=== PATIENT | male | born 1990 | race Caucasian/White ===

== ENCOUNTER 2021-08-21 11:35 | Outpatient (REF) | payer OTHER, SELFPAY ==
[2021-08-21 13:39] LABS: Alanine Aminotransferase 18 U/L (0-40); Albumin Level 4.4 g/dL (3.5-5.0); Alkaline Phosphatase 91 U/L (39-117); Anion Gap 9 (12-20); Aspartate Amino Transferase 20 U/L (5-37); Bilirubin Total 1.3 mg/dL (0.0-1.0); Blood Urea Nitrogen 22 mg/dL (9-16); Calcium 9.7 mg/dL (8.4-10.2); Carbon Dioxide 29 mmol/L (22-29); Chloride 106 mmol/L (96-108); Cholesterol 189 mg/dL; Estimated Glomerular Filt Rate > 60; Glucose Fasting 91 mg/dL (60-99); HDL Cholesterol 35 mg/dL; LDL Cholesterol Calculated 130 mg/dl; Potassium 4.2 mmol/L (3.3-5.1); Sodium 140 mmol/L (135-145); Total Protein 7.2 g/dL (6.5-8.0); Triglycerides 122 mg/dL
[2021-08-21 13:59] LABS: TSH reflex Free T4 0.95 uIU/mL (0.32-4.0)
[2021-08-22 04:13] LABS: HBS Num1 50.23 mIU/mL (0-7.99); HBc Num1 0.06 S/CO (0.00-0.79); HBsAGNum1 0.27 S/CO (0.00-0.99); HIV AB/AG Nonreactive (Nonreactive); HIV Num 1 0.06 S/CO (0.00-0.99); Hepatitis B Core Antibody Nonreactive (Nonreactive); Hepatitis B Surface Antigen Negative (Negative); ~HepC Num1 0.09 S/CO (0.00-0.79); ~Hepatitis B Surface Antibody REACTIVE (Nonreactive); ~Hepatitis C Antibody Nonreactive (Nonreactive)
[2021-08-22 05:47] LABS: Syphilis Screen Nonreactive (Nonreactive)
== END 2021-08-21 11:36 | disposition home or self-care (01) ==
LOC: HO.WFDLDS 11:35
PROVIDERS: Visit Provider Family Medicine
DX: Z00.00 Encounter for general adult medical examination without abnormal findings (principal); Z11.4 Encounter for screening for human immunodeficiency virus [HIV]; Z11.3 Encounter for screening for infections with a predominantly sexual mode of transmission
CPT/HCPCS: 36415; 80053; 80061; 84443; 86704; 86706; 86780; 86803; 87340; 87389

== ENCOUNTER → 2021-09-05 10:46 | Outpatient (REF) | payer OTHER, SELFPAY ==
--- NOTE | 2021-09-05 10:51 | CA_ITS ---
Acquisition Time: 2021-09-05 11:11:03 Total Exercise Time: 00:15:01 Test Indications: HX CAD CP Medications: SEE CHART Protocol: DEE Max HR: 210 BPM 110% of Pred: 190 BPM Max BP: 152/060 mmHG Max Work Load: 17.2 METS Exercise stress test with exercise 15 min 1 sec of Dee protocol, achieving 88% MPHR, without anginal symptoms, without arrythmia, with normotensive response to exercise, without EKG changes meeting criteria for ischemia. Echo images obtained by tech at rest and immediately post peak exercise. Definity contrast used. Heart rate noted to correct quickly in recovery. Test reviewed with Dr Figueroa. Referred By: Enrico Miller Overread By: MAU LOGAN
== END ==
LOC: HO.CARD 10:46
PROVIDERS: PCP Family Medicine; Visit Provider Family Medicine
DX: R07.89 Other chest pain (principal)
CPT/HCPCS: 93350; Q9957

== ENCOUNTER 2021-12-18 10:20 | Outpatient (REF) | payer OTHER, SELFPAY ==
[2021-12-18 14:48] LABS: Alanine Aminotransferase 17 U/L (0-40); Albumin Level 4.5 g/dL (3.5-5.0); Alkaline Phosphatase 93 U/L (39-117); Anion Gap 15 (12-20); Aspartate Amino Transferase 18 U/L (5-37); Bilirubin Total 1.1 mg/dL (0.0-1.0); Blood Urea Nitrogen 21 mg/dL (9-16); Calcium 9.4 mg/dL (8.4-10.2); Carbon Dioxide 25 mmol/L (22-29); Chloride 105 mmol/L (96-108); Estimated Glomerular Filt Rate > 60; Glucose Random 87 mg/dL (60-115); Potassium 4.1 mmol/L (3.3-5.1); Sodium 141 mmol/L (135-145); Total Protein 7.2 g/dL (6.5-8.0)
== END 2021-12-18 10:21 | disposition home or self-care (01) ==
LOC: HO.WFDLDS 10:20
PROVIDERS: Visit Provider Family Medicine
DX: B35.1 Tinea unguium (principal)
CPT/HCPCS: 36415; 80053

== ENCOUNTER 2022-02-07 09:48 | Outpatient (REF) | payer OTHER, SELFPAY | END 2022-02-07 09:49 | disposition home or self-care (01) | LOC: HO.SH 09:48 | PROVIDERS: Visit Provider Family Medicine | DX: H90.11 Conductive hearing loss, unilateral, right ear, with unrestricted hearing on the contralateral side (principal) | CPT/HCPCS: 92557; 92567 ==

== ENCOUNTER 2023-04-14 02:01 | Emergency (ER) | payer OTHER, SELFPAY ==
[2023-04-14 02:04] VITALS: BP 150/99; PULSE 80; RESP 17; TEMP 36.8; O2SAT 98; BMI 25.1
--- NOTE | 2023-04-14 02:37 | PC.NURSE ---
Pt ambulated to room from triage, Pt changed over by security, belongings in closet.
--- NOTE | 2023-04-14 03:09 | PC.NURSE ---
Addendum entered by Paulette Velasco 04/14/23 06:55: 1:1 sitter for safety. Original Note: Pt laying in stretcher, A&Ox3, tearful at times. Reports having increase SI thoughts since Angel with no appetite. 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 Pt reports calling [phone] tonight no help with these feelings inside of me. My personal life is really empty . Pt reports feeling safe while here, Pt updated on plan. Med rec done, Pt reports not taking any home meds.
[2023-04-14 03:20] LABS: MANUAL DIFF FLAG NO
[2023-04-14 03:21] LABS: Basophils Percent Auto 0.7 % (0-2); Eosinophils Absolute Auto 0.1 X10*3/uL (0.0-0.4); Hemoglobin 16.3 g/dl (14.0-18.0); Imm Gran Abs Auto 0.02 X10*3/uL (0.00-0.03); Imm Gran Pct Auto 0.3 % (0.0-0.4); Lymphocytes Absolute Auto 2.1 X10*3/uL (1.2-4.9); Lymphocytes Percent Auto 34.2 % (20-40); Mean Corpuscular HGB Conc 36.2 g/dl (31.0-36.0); Mean Corpuscular Hemoglobin 30.6 pg (27.0-33.0); Mean Corpuscular Volume 84.4 fL (80.0-98.0); Mean Platelet Volume 8.6 fL (9.4-12.4); Monocytes Absolute Auto 0.5 X10*3/uL (0.1-1.2); Monocytes Percent Auto 8.4 % (2-11); Neutrophils Absolute Auto 3.4 x10*3/uL (2.0-8.3); Neutrophils Percent Auto 55.4 % (45-73); Platelet Count 220 X10*3/uL (160-400); Red Blood Count 5.33 X10*6/uL (4.60-5.80); Red Cell Distribution Width 11.8 % (11.0-16.0); White Blood Count 6.1 X10*3/uL (4.8-10.8)
[2023-04-14 03:44] LABS: Alanine Aminotransferase 16 U/L (0-40); Albumin Level 4.3 g/dL (3.5-5.0); Alkaline Phosphatase 81 U/L (39-117); Anion Gap 15 (12-20); Aspartate Amino Transferase 19 U/L (5-37); Bilirubin Direct 0.4 mg/dL (0.0-0.5); Bilirubin Total 1.3 mg/dL (0.0-1.0); Blood Urea Nitrogen 13 mg/dL (9-16); Calcium 9.6 mg/dL (8.4-10.2); Carbon Dioxide 23 mmol/L (22-29); Chloride 109 mmol/L (96-108); Creatinine Clr Calc Pharmacy 113.9; Estimated Glomerular Filt Rate > 60; Ethanol < 10 mg/dL; Glucose Random 90 mg/dL (60-115); Potassium 3.2 mmol/L (3.3-5.1); Sodium 144 mmol/L (135-145)
[2023-04-14 04:13] LABS: Amphetamine Screen Urine Not Detected (Not Detect); Barbiturates, Urine Not Detected (Not Detect); Benzodiazepines Screen Urine Not Detected (Not Detect); Cannabinoid Screen Urine Not Detected (Not Detect); Cocaine Screen Urine Not Detected (Not Detect); Fentanyl, urine Not Detected (Not Detect); Opiate Screen Urine Not Detected (Not Detect); Phencyclidine Screen Urine Not Detected (Not Detect)
[2023-04-14 06:00] VITALS: BP 123/73; PULSE 58; RESP 14; TEMP 36.8; O2SAT 98
--- NOTE | 2023-04-14 07:25 | ED.GENADULT ---
HPI - General Adult General Chief complaint: Psychiatric Symptoms Stated complaint: Self inflicted lac Time Seen by Provider: 04/14/23 07:15 History of Present Illness HPI narrative: the patient is a 33-year-old male who drove himself to the emergency room here this morning T because he was feeling depressed. He says that something happened 1 week ago on Angel that made him feel more depressed over the last several days. He says he has been eating significantly less ever since then and this morning he used a kitchen knife to scratch his left forearm in a suicidal gesture. He regretted doing that and then drove himself to the hospital here. He says that he has had episodes of significant depression before in his life but he has never before presented to Emergency Room because of depression. He says he tried to get a Therapist about a year 2 ago but he had difficulty doing so and never connected with the therapist. The patient has no medical complaints. No fever, sweats, chills. No headache, chest pain, abdominal pain, nausea, vomiting. No ingestions. Related Data Home Medications Medication Instructions Recorded Confirmed No Known Home Meds 04/14/23 04/14/23 Allergies Allergy/AdvReac Type Severity Reaction Status Date / Time No Known Allergies Allergy Verified 04/14/23 03:16 [No Known Allergies*] Review of Systems Review of Systems: Yes all other systems are reviewed and are negative [facility] Social History Social History Housing: House Alcohol intake: never Patient Tobacco Use Status: Never used Tobacco Smoked in Last 30 Days: No e-Cigarette/Vaping Use: Never Used Second Hand Smoke Exposure: No Use of substances other than those prescribed or required for medical reasons: No Advance Directives: No Advance Directives Information Provided: Yes Healthcare Proxy: No Guardian: No service: No Current occupational status: employed Current occupational exposures/hazards: No Cognitive needs: No Hearing needs: No Vision needs: No Physical Exam ED Vital Signs: Vital Signs - 24 hr 04/14/23 02:04 04/14/23 06:00 04/14/23 10:50 Temperature 98.3 F 98.3 F Pulse Rate 80 58 76 Respiratory Rate 17 14 19 Blood Pressure 150/99 H 123/73 121/76 Pulse Oximetry 98 98 97 Oxygen Delivery Method Room Air Room Air Room Air BMI result Body Mass Index 25.1 Const Other: The patient was sleeping when I 1st encountered him but woke easily to a normal mental status. He does not appear ill. He was pleasant cooperative. HENMT Other: Mucous membranes moist, face symmetrical Eyes Other: Pupils are round equal, conjunctivae clear Neck Neck: Yes no JVD Resp Effort & Inspection: normal respiratory effort Auscultation: clear to auscultation bilaterally Cardio Rate: regular rate Rhythm: regular rhythm Heart sounds: S1 normal heart sound present and S2 normal heart sound present GI Other: Soft, nontender Skin General skin exam: no rashes or lesions noted Neuro Other: Awake, alert, appropriate, grossly neurologically intact. Extrem Other: No peripheral edema. Medical Decision Making Medical Decision Making [facility] Narrative: The patient is a 33-year-old male who presents with symptoms of depression and thoughts of self-harm who comes to the emergency room looking for help for these problems. He seems medically stable and clear for evaluation by behavioral health. The patient was seen by the behavioral health crisis team. The patient was judged to be at low risk for self-harm and was not felt to require hospitalization. The patient seems to be comfortable being discharged. His mother is here. She seems supportive. Patient will be discharged to follow-up with [facility] in [place]. He was given appropriate contact information. Lab Data 04/14/23 03:16 04/14/23 03:16 Labs: Lab Results 04/14/23 04/14/23 Range/Units 03:16 03:55 WBC 6.1 (4.8-10.8) X10*3/uL RBC 5.33 (4.60-5.80) X10*6/uL Hgb 16.3 (14.0-18.0) g/dl Hct 45.0 (42.0-52.0) % MCV 84.4 (80.0-98.0) fL MCH 30.6 (27.0-33.0) pg MCHC 36.2 H (31.0-36.0) g/dl RDW 11.8 (11.0-16.0) % Plt Count 220 (160-400) X10*3/uL MPV 8.6 L (9.4-12.4) fL Immature Gran % (Auto) 0.3 (0.0-0.4) % Neut % (Auto) 55.4 (45-73) % Lymph % (Auto) 34.2 (20-40) % Menard % (Auto) 8.4 (2-11) % Eos % (Auto) 1.0 (0-4) % Baso % (Auto) 0.7 (0-2) % Lymph # (Auto) 2.1 (1.2-4.9) X10*3/uL Menard # (Auto) 0.5 (0.1-1.2) X10*3/uL Eos # (Auto) 0.1 (0.0-0.4) X10*3/uL Baso # (Auto) 0.0 (0.0-0.2) X10*3/uL Abs Immat Gran (auto) 0.02 (0.00-0.03) X10*3/uL Absolute Neuts (auto) 3.4 (2.0-8.3) x10*3/uL Absolute Nucleated RBC 0.000 (0.0-0.012) X10*3/uL Nucleated RBC % (auto) 0.0 (0.0-0.2) /100WBC Sodium 144 (135-145) mmol/L Potassium 3.2 L D (3.3-5.1) mmol/L Chloride 109 H (96-108) mmol/L Carbon Dioxide 23 (22-29) mmol/L Anion Gap 15 (12-20) BUN 13 (9-16) mg/dL Creatinine 0.87 (0.5-1.4) mg/dL Estim Creat Clear Calc 113.9 Estimated GFR > 60 Random Glucose 90 (60-115) mg/dL Calcium 9.6 (8.4-10.2) mg/dL Total Bilirubin 1.3 H (0.0-1.0) mg/dL Direct Bilirubin 0.4 (0.0-0.5) mg/dL AST 19 (5-37) U/L ALT 16 (0-40) U/L Alkaline Phosphatase 81 (39-117) U/L Total Protein 7.0 (6.5-8.0) g/dL Albumin 4.3 (3.5-5.0) g/dL Urine Opiates Screen Not Detected (Not Detect) Urine Fentanyl Screen Not Detected (Not Detect) Ur Barbiturates Screen Not Detected (Not Detect) Ur Phencyclidine Scrn Not Detected (Not Detect) Ur Amphetamines Screen Not Detected (Not Detect) U Benzodiazepines Scrn Not Detected (Not Detect) Urine Cocaine Screen Not Detected (Not Detect) U Marijuana (THC) Screen Not Detected (Not Detect) Ethyl Alcohol < 10 mg/dL Discharge Plan Discharge Clinical Impression: Depression Patient Disposition: Home, Self-Care Additional Instructions: These plan on following up with [facility] ([facility]) based in [facility]. They have an intake office at their location at [facility]. Their general numbers for [phone]. This is a 24 hour number the you can call at any time. You may also call this number if you are feeling bad and wished to speak to somebody confidentially. If you are feeling significantly worse please call the above number or return to the emergency department. Prescriptions: No Action No Known Home Meds Referrals: [facility] [Outside] (depression) Enrico Miller MD [Physician] - Interventions: [place]-Suicide Risk Severity Scale Last Done: 04/14/23 02:40 ED Discharge Assessment Last Done: 04/14/23 12:33 Discharge Date/Time: 04/14/23 12:44
[2023-04-14 10:50] VITALS: BP 121/76; PULSE 76; RESP 19; O2SAT 97
== END 2023-04-14 12:44 | disposition home or self-care (01) ==
PROVIDERS: Emergency Provider Emergency Medicine
DX: F32.A Depression, unspecified (principal); R45.851 Suicidal ideations; E78.00 Pure hypercholesterolemia, unspecified
CPT/HCPCS: 36415; 80053; 80307; 82248; 85025; 99284; 99285; S9485

== ENCOUNTER 2023-06-05 15:42 | Outpatient (AMB) | payer OTHER, SELFPAY ==
[2023-06-05 16:09] VITALS: BP 134/78; PULSE 84; RESP 16; O2SAT 96; BMI 23.6
--- NOTE | 2023-06-05 16:09 | MHC.PC.OV ---
Vital Signs 06/05/23 16:09 Height 5 ft 7 in Weight 151 lb BMI 23.6 BP 134/78 Blood Pressure Location Lt brachial Position Sitting Respiration 16 Pulse 84 Pulse Source Pulse Oximeter Pulse Oximetry (%) 96 Oxygen Delivery Method Room Air Intake Visit Reasons: Annual PE Intake Note: Patient is here for his physical today. Allergies No Known Allergies [No Known Allergies*] Allergy (Verified 06/05/23 16:13) Tobacco use date assessed: 06/05/23 HPI Annual PE HPI Details 33 y/o male presents today to discuss depression/anxiety. PHQ-9 score today 26, RAYMON-7 13. Had just been to Crisis recently. Depression/anxiety started Angel. Had felt unstable around New Years and had went to the emergency department - he states not much was done for him and had went home after 12 hours. Pt states mood had worsened and notes episodes of excessive drinking of up to 15 shots of whiskey. Pt also reports an episode of swimming in the river in May. He does not have an official therapist but has been seeing a crisis counselor. Pt reports poor sleep. [facility] Social History Housing: House Alcohol intake: never Patient Tobacco Use Status: Never used Tobacco e-Cigarette/Vaping Use: Never Used Second Hand Smoke Exposure: No service: No Current occupational status: employed Current occupational exposures/hazards: No Cognitive needs: No Hearing needs: No Vision needs: No Questionnaire PHQ-9 Over the last 2 weeks, how often have you been bothered by any of the following problems? 1. Little interest or pleasure in doing things: nearly every day 2. Feeling down, depressed, or hopeless: nearly every day 3. Trouble falling or staying asleep, or sleeping too much: nearly every day 4. Feeling tired or having little energy: nearly every day 5. Poor appetite or overeating: nearly every day 6. Feeling bad about yourself - or that you are a failure or have let yourself or your family down: nearly every day 7. Trouble concentrating on things, such as reading the newspaper or watching television: nearly every day 8. Moving or speaking so slowly that other people could have noticed. Or the opposite - being so fidgety or restless that you have been moving around a lot more than usual: nearly every day 9. Thoughts that you would be better off or of hurting yourself in some way: more than half the days Total score: 26 Depression Screening Interpretation: Positive Depression Screening Done: Yes 66254 - PHQ-9 Billing: Yes Source: Developed by Drs. Blaise Lee, Capo Montaño and colleagues, with an educational jose from [employer]. RAYMON-7 AMB Questionnaire RAYMON-7 Date RAYMON - 7 assessed: 06/05/23 Feeling nervous, anxious, or on edge: 3 = Nearly every day Not being able to stop or control worryin = Nearly every day Worrying too much about different things: 3 = Nearly every day Trouble relaxin = Nearly every day Being so restless that it is hard to sit still: 0 = Not at all Becoming easily annoyed or irritable: 0 = Not at all Feeling afraid as if something awful might happen: 1 = Several days Total RAYMON-7 score (0-4 normal; 5-9 mild; 10-14 moderate; 15-21 severe): 13 Source: Developed by Drs. Blaise Lee, Tyra Cotto, Capo Kinsey and colleagues, with an educational jose from [employer]. RAYMON-7 Assessment Billing RAYMON-7 Assessment Tool: RAYMON-7 Assessment 46947 Review of Systems Const Denies chills, Denies fatigue, Denies fever(s), Denies headache(s) and Denies weakness ENT Denies dizziness and Denies headache(s) Card Denies dyspnea Resp Denies cough, Denies dyspnea, Denies wheezing and Denies other (shortness of breath) Musc Denies numbness and Denies tingling Neuro Denies dizziness, Denies headache(s), Denies numbness, Denies tingling and Denies weakness Psych Reports anxiety and Reports depression Endo Denies fatigue Aller/Immun Denies wheezing Physical exam (Primary Care) Vital Signs: Last Vital Signs Pulse 84 06/05/23 16:09 Resp 16 06/05/23 16:09 BP 134/78 06/05/23 16:09 Pulse Ox 96 06/05/23 16:09 Oxygen Delivery Method Room Air 06/05/23 16:09 BMI result Body Mass Index 23.6 Tobacco/Smoking Status: Tobacco use Status Tobacco use date assessed 06/05/23 06/05/23 16:23 Patient Tobacco Use Status Never used Tobacco 06/05/23 16:23 e-Cigarette/Vaping Use Never Used 06/05/23 16:23 PHQ-9: PHQ-9 Score PHQ-9: Total score 26 06/05/23 16:23 Depression Screening Interpretation: Positive Const General: well developed; No acute distress Nutritional Appearance: well nourished Orientation/consciousness: patient oriented x3 HENMT Head: Yes normocephalic and Yes atraumatic Eyes General: appearance normal, both eyes and all related structures Pupils: Equal, round and reactive pupils present EOM: EOMs intact bilaterally Resp Effort & Inspection: normal respiratory effort Auscultation: clear to auscultation bilaterally Cardio Rate: regular rate Rhythm: regular rhythm Heart sounds: S1 normal heart sound present, S2 normal heart sound present, no gallops, no murmurs and no rubs Neuro General: patient oriented x3 and gait normal Cranial nerves: Yes Equal, round and reactive pupils present Psych Affect: Anxious affect present Assessment and Plan Assessment & Plan (1) Depression with anxiety: Code(s): F41.8 - Other specified anxiety disorders Plan: Severe?depression?and?anxiety. Has?been?to?crisis?and?I?encouraged?him?that?if?he?is?having?further?problems?or?thinking?about?hurting?himself?in?any?way,?he?should?go?back?to?crisis. He?can?also?call?here. He?says?he?has?a?relative?he?will?ask?if?they?would?be?willing?to?be?another?person?he?can?call?if?he?is?thinking?about?hurting?himself. Contracts?for?safety Will?ask?the?nurse?navigator?to?connect?him?with?a?therapist?as?soon?as?possible We?discussed?trying?a?small?dose?of?Abilify?which?may?help?with?sleep,?anxiety?and?depression.??He?may?stop?this?if?he?does?not?like?how?it?makes?him?feel.??He?can?also?discuss?with?his?therapist?when?he?gets?one. Orders: Orders Comprehensive [place]. Panel Fast Today Z00.00 - Encounter for general adult medical examination without abnormal findings Lipid Panel Today Z00.00 - Encounter for general adult medical examination without abnormal findings Microalbumin, Random (w Creat) Today I10 - Essential (primary) hypertension TSH reflex Free T4 Today Z00.00 - Encounter for general adult medical examination without abnormal findings UA and rflx microscopic Today Z00.00 - Encounter for general adult medical examination without abnormal findings CT NG by PCR Today Z11.3 - Encounter for screening for infections with a predominantly sexual mode of transmission HIV Ab/Ag Today Z11.3 - Encounter for screening for infections with a predominantly sexual mode of transmission Vitamin D 25-OH Total Today E55.9 - Vitamin D deficiency, unspecified Vitamin B12 and Folate Today E53.8 - Deficiency of other specified B group vitamins Complete Blood Count Auto Diff Today Z00.00 - Encounter for general adult medical examination without abnormal findings Hepatitis B,C Profile Today Z11.3 - Encounter for screening for infections with a predominantly sexual mode of transmission Syphilis Screen Today Z11.3 - Encounter for screening for infections with a predominantly sexual mode of transmission Referrals Nurse Navigator Referral F41.8 - Other specified anxiety disorders Medications: New aripiprazole (Abilify) 2 mg PO BEDTIME 5 tabs 0RF 5 days Coding Level of Care Code Est Pt Level 3 (66760) Diagnoses Depression with anxiety F41.8 Additional Codes RAYMON-7 Assessment Billing - RAYMON-7 Assessment Tool: RAYMON-7 Assessment [id number] ([id number])
== END 2023-06-05 17:00 ==
PROVIDERS: PCP Family Medicine; Visit Provider Family Medicine
DX: F41.8 Other specified anxiety disorders (principal)
CPT/HCPCS: 96127; 99213

== ENCOUNTER 2023-06-07 03:33 | Emergency (ER) | payer OTHER, SELFPAY ==
[2023-06-07 03:37] VITALS: BP 124/87; PULSE 74; RESP 16; TEMP 36.6; O2SAT 97; BMI 22.6
[2023-06-07 04:35] LABS: Hematocrit 46.8 % (42.0-52.0); Hemoglobin 16.7 g/dl (14.0-18.0); Mean Corpuscular HGB Conc 35.7 g/dl (31.0-36.0); Mean Corpuscular Hemoglobin 30.5 pg (27.0-33.0); Mean Corpuscular Volume 85.6 fL (80.0-98.0); Mean Platelet Volume 8.8 fL (9.4-12.4); Platelet Count 239 X10*3/uL (160-400); Red Blood Count 5.47 X10*6/uL (4.60-5.80); Red Cell Distribution Width 11.9 % (11.0-16.0); White Blood Count 6.8 X10*3/uL (4.8-10.8)
[2023-06-07 04:36] LABS: Appearance Urine Clear; Color Urine Yellow; Glucose Urine UA Negative (Negative); Leukocyte Esterase Urine Negative (Negative); Nitrite Urine Negative (Negative); PH 5.5 (5.0-9.0); Specific Gravity - Urine >= 1.030 (1.005-1.025); Urine Blood Negative (Negative); Urine Ketones Trace mg/dL (Negative); Urine Protein Negative (Neg-Trace)
--- NOTE | 2023-06-07 04:37 | PC.NURSE ---
PT had $747 in wallet. Father had just left ED so PT called dad and requested him to return to obtain wallet and barajas. This RN counted PT's barajas in front of dad and chief guard, Ruel and gave barajas and wallet to dad.
[2023-06-07 04:46] LABS: Amphetamine Screen Urine Not Detected (Not Detect); Barbiturates, Urine Not Detected (Not Detect); Benzodiazepines Screen Urine Not Detected (Not Detect); Cannabinoid Screen Urine Not Detected (Not Detect); Cocaine Screen Urine Not Detected (Not Detect); Fentanyl, urine Not Detected (Not Detect); Opiate Screen Urine Not Detected (Not Detect); Phencyclidine Screen Urine Not Detected (Not Detect)
[2023-06-07 04:52] LABS: COVID-19 Test Negative (Negative); IDNOW Serial# 152EDE1D
[2023-06-07 04:56] LABS: Alanine Aminotransferase 19 U/L (0-40); Albumin Level 4.3 g/dL (3.5-5.0); Alkaline Phosphatase 78 U/L (39-117); Anion Gap 13 (12-20); Aspartate Amino Transferase 15 U/L (5-37); Bilirubin Total 0.4 mg/dL (0.0-1.0); Blood Urea Nitrogen 19 mg/dL (9-16); Calcium 9.5 mg/dL (8.4-10.2); Carbon Dioxide 26 mmol/L (22-29); Chloride 106 mmol/L (96-108); Creatinine Clr Calc Pharmacy 121.9; Estimated Glomerular Filt Rate > 60; Ethanol < 10 mg/dL; Glucose Random 97 mg/dL (60-115); Potassium 3.4 mmol/L (3.3-5.1); Sodium 142 mmol/L (135-145); Total Protein 6.9 g/dL (6.5-8.0)
[2023-06-07 05:20] VITALS: RESP 18
[2023-06-07 06:00] VITALS: RESP 16
--- NOTE | 2023-06-07 07:58 | ED.GENADULT ---
HPI - General Adult General Chief complaint: Psychiatric Symptoms Stated complaint: ?Crisis Time Seen by Provider: 06/07/23 06:43 Source: patient Mode of arrival: ambulatory Limitations: no limitations History of Present Illness HPI narrative: 33-year-old male history of depression, anxiety presenting to the emergency department for concerns of suicidal ideation with self-inflicted wounds to left wrist and left forearm. According to patient he bought a knife and started cutting himself unclear why. Also reports he has been drinking more than usual since April. He was recently prescribed Abilify a few days ago which he does not feel has been helping he states he started taking it 2 days ago. Denies hallucinations, drug use. Denies medical complaints at this time denies fevers, chills, chest pain, shortness of breath, nausea, vomiting, abdominal pain, headache, vision changes, dizziness and weakness, fevers and chills . UTD on tetanus Related Data Previous Rx's Medication Instructions Recorded aripiprazole 2 mg tablet (Abilify) 2 mg PO BEDTIME 5 days #5 tabs 06/05/23 Allergies Allergy/AdvReac Type Severity Reaction Status Date / Time No Known Allergies Allergy Verified 06/05/23 16:13 [No Known Allergies*] Review of Systems Review of Systems: Yes all other systems are reviewed and are negative PMFSH Past Medical History Attestation statement: The following information was validated with the patient. Source: old records reviewed and nursing notes reviewed Social History Social History Housing: House Alcohol intake: never Patient Tobacco Use Status: Never used Tobacco Smoked in Last 30 Days: No e-Cigarette/Vaping Use: Never Used Second Hand Smoke Exposure: No Use of substances other than those prescribed or required for medical reasons: No Advance Directives: No Advance Directives Information Provided: Yes service: No Current occupational status: employed Current occupational exposures/hazards: No Cognitive needs: No Hearing needs: No Vision needs: No Physical Exam ED Vital Signs: Vital Signs - 24 hr 06/07/23 03:37 06/07/23 05:20 06/07/23 06:00 Temperature 97.9 F Pulse Rate 74 Respiratory Rate 16 18 16 Blood Pressure 124/87 Pulse Oximetry 97 Oxygen Delivery Method Room Air BMI result Body Mass Index 22.6 vss Appearance: Alert.? Oriented X3.? No acute distress.? Head: Normocephalic, atraumatic, no step-offs or deformities Eyes: Pupils equal, round and reactive to light.? ENT: Pharynx normal.? Neck: Normal inspection.? Neck supple.? CVS: Normal heart rate and rhythm.? Pulses normal.? Respiratory: No respiratory distress.? Breath sounds normal.? Abdomen: Soft and nontender.? Skin: Skin warm and dry.? Normal skin color.? Normal skin turgor.? self induced linear superficial lacerations to left wrist and forearm and r thigh . Not bleeding. Extremities: No lower extremity edema.? No calf ttp. 5/5 strength to bilateral upper and lower extremities Neuro: Oriented X 3.? No motor deficit.? No sensory deficit. CN 2-12 intact Course Reevaluation(s) Reevaluation #1: CBC no acute findings. Chemistry unremarkable. UA without infection. Urine toxicology negative. Ethanol negative. COVID negative. At this time patient to be placed into observation pending evaluation by care team. Time: 08:38 Reevaluation #2: Patient to be DC home w/ parents who will not allow him to be at home will be set up with resources. Safety plan [facility]be done by [facility] care team. And partial hospitalization referral sent. Agree with plan. Patient not suicidal or homicidal at this time. Feeling well. Initially he just told me he fell only. Educated patient on diagnosis and treatment plan, answered all question, patient verbalizes understanding. At this time patient will be discharged home, advised to return with new or worsening symptoms. Educated on worrisome signs and symptoms and when to return. At this time I feel comfortable discharge home. Time: 14:22 Medications Administered Discontinued Medications Generic Name Dose Route Start Last Admin Trade Name Freq PRN Reason Stop Dose Admin Diphtheria/Tetanus/Acell Pertussis 0.5 ml 06/07/23 08:00 06/07/23 08:18 Diphth,Pertus(Acell),Tet Adult 0.5 Ml Syringe IM 06/07/23 08:01 Not Given .ONCE ONE Medical Decision Making Medical Decision Making MDM Narrative: 33-year-old male presents initially with father who is concerned that patient has been trying to self harm. He is suicidal with no particular plan. Patient recently started on Abilify Physical exam self induced linear superficial lacerations to left wrist and forearm and r thigh . Not bleeding. History and physical exam concerning for depression versus bipolar with suicidal ideation. Unlikely metabolic derangements. Plan medical clearance evaluation by behavioral health team. Will give Boostrix shot Differential Diagnosis Differential Diagnoses: The differential diagnosis associated with the presentation includes History and physical exam concerning for depression versus bipolar with suicidal ideation. Unlikely metabolic derangements. Admission/Observation Consideration of admission/observation: Escalation of care including admission/observation considered Possible psych Consult Healthcare Provider Management of the patient was discussed with: Behavioral Health Provider Lab Data MDM Lab Attestation statement: I reviewed the patient's lab results. 06/07/23 04:27 06/07/23 04:27 Labs: Lab Results 06/07/23 06/07/23 Range/Units 04:27 04:28 WBC 6.8 (4.8-10.8) X10*3/uL RBC 5.47 (4.60-5.80) X10*6/uL Hgb 16.7 (14.0-18.0) g/dl Hct 46.8 (42.0-52.0) % MCV 85.6 (80.0-98.0) fL MCH 30.5 (27.0-33.0) pg MCHC 35.7 (31.0-36.0) g/dl RDW 11.9 (11.0-16.0) % Plt Count 239 (160-400) X10*3/uL MPV 8.8 L (9.4-12.4) fL Absolute Nucleated RBC 0.000 (0.0-0.012) X10*3/uL Nucleated RBC % (auto) 0.0 (0.0-0.2) /100WBC Sodium 142 (135-145) mmol/L Potassium 3.4 (3.3-5.1) mmol/L Chloride 106 (96-108) mmol/L Carbon Dioxide 26 (22-29) mmol/L Anion Gap 13 (12-20) BUN 19 H (9-16) mg/dL Creatinine 0.83 (0.5-1.4) mg/dL Estim Creat Clear Calc 121.9 Estimated GFR > 60 Random Glucose 97 (60-115) mg/dL Calcium 9.5 (8.4-10.2) mg/dL Total Bilirubin 0.4 (0.0-1.0) mg/dL AST 15 (5-37) U/L ALT 19 (0-40) U/L Alkaline Phosphatase 78 (39-117) U/L Total Protein 6.9 (6.5-8.0) g/dL Albumin 4.3 (3.5-5.0) g/dL Urine Color Yellow Urine Appearance Clear Urine pH 5.5 (5.0-9.0) Ur Specific [place] >= 1.030 H (1.005-1.025) Urine Protein Negative (Neg-Trace) mg/dL Urine Glucose (UA) Negative (Negative) mg/dL Urine Ketones Trace (Negative) mg/dL Urine Blood Negative (Negative) Urine Nitrite Negative (Negative) Ur Leukocyte Esterase Negative (Negative) Urine Opiates Screen Not Detected (Not Detect) Urine Fentanyl Screen Not Detected (Not Detect) Ur Barbiturates Screen Not Detected (Not Detect) Ur Phencyclidine Scrn Not Detected (Not Detect) Ur Amphetamines Screen Not Detected (Not Detect) U Benzodiazepines Scrn Not Detected (Not Detect) Urine Cocaine Screen Not Detected (Not Detect) U Marijuana (THC) Screen Not Detected (Not Detect) Ethyl Alcohol < 10 mg/dL COVID-19 (FELICIANO) Negative (Negative) COVID-19 Clin Com See Note External Record Review External record reviewed: Inpatient record, Office record, Outpatient record, Prior outpatient labs, Prior outpatient radiology and Primary care record Chronic Conditions Patient?s care impacted by: Other (depression ) Critical Care Time Critical Care Time Critical Care Time: No Discharge Plan Discharge Clinical Impression: Depression with anxiety, Self-inflicted laceration of wrist Patient Disposition: Home, Self-Care Instructions: Laceration (ED), Panic Disorder (ED), Anxiety (ED) Additional Instructions: Take your medications as prescribed. If you were prescribed antibiotics today, it is important that you take your medication to their entirety, do not skip any doses, do not finish them early. Follow-up with your primary care provider this week. Return to the emergency department with new or worsening symptoms. Such as fevers, chills, chest pain, shortness of breath, nausea, vomiting, dizziness, headache, vision changes, lethargy, suicidal or homicidal ideation In case of emergency call 911 Prescriptions: No Action aripiprazole [Abilify] 2 mg tablet 2 mg PO BEDTIME 5 Days Qty: 5 0RF Referrals: Enrico Miller MD [Primary Care Provider] - 2 days Interventions: [place]-Suicide Risk Severity Scale Last Done: 06/07/23 12:50
--- NOTE | 2023-06-07 09:10 | PC.NURSE ---
Assumed care of patient at 0700, patient appears to be sleeping at this time, no apparent distress. continue plan of care for Sec 12, inpt admission
[2023-06-07 14:42] VITALS: PULSE 88; RESP 14; O2SAT 97
--- NOTE | 2023-06-07 14:57 | MHC.CARE ---
Patient evaluated by the CARE Team, does not require an inpatient admission. Safety planning completed, written assessment to follow. ED provider, RASHIDA Luna updated and in agreement with plan.
--- NOTE | 2023-06-07 18:42 | MHC.CARE ---
RAD Team completed and faxed PHP referral for this pt, will follow up
--- NOTE | 2023-06-09 10:14 | MHC.CARE ---
Rad Team spoke with Kait Reyes at [facility] [phone] and confirmed that the referral has been received. Kait stated that she plans to reach out to [place] today.
== END 2023-06-07 14:43 | disposition home or self-care (01) ==
PROVIDERS: Emergency Medicine Emergency Medical Services; Emergency Provider Emergency Medicine; PCP Family Medicine
DX: F41.8 Other specified anxiety disorders (principal); S61.512A Laceration without foreign body of left wrist, initial encounter; X78.9XXA Intentional self-harm by unspecified sharp object, initial encounter; Y93.9 Activity, unspecified; Y92.9 Unspecified place or not applicable; Y99.9 Unspecified external cause status; R45.851 Suicidal ideations; Z11.52 Encounter for screening for COVID-19; Z79.899 Other long term (current) drug therapy
CPT/HCPCS: 36415; 80053; 80307; 81003; 85027; 87635; 90471; 99285; S9485

== ENCOUNTER 2023-07-15 10:33 | Outpatient (AMB) | payer OTHER, SELFPAY ==
--- NOTE | 2023-07-15 10:38 | MHC.PC.OV ---
Vital Signs 07/15/23 10:43 Height 5 ft 8 in Weight 151 lb BMI 23.0 BP 112/60 Blood Pressure Location Lt brachial Position Sitting Pulse 53 Pulse Source Pulse Oximeter Pulse Oximetry (%) 97 Oxygen Delivery Method Room Air Intake Visit Reasons: 1 mth follow up Intake Note: Patient is here for 1 month follow up on depression/anxiety. Allergies No Known Allergies [No Known Allergies*] Allergy (Verified 07/15/23 10:39) Medication List - Last Reconciled 07/15/23 by Enrico Miller MD aripiprazole (Abilify) 2 mg PO BEDTIME 5 days Tobacco use date assessed: 07/15/23 HPI 1 mth follow up HPI Details 33 y/o male presents to f/u anxiety/depression. Had referred for therapist and given him a short script for Abilify. PHQ-9 was 26 on 06/05/23 and RAYMON-7 13. PHQ-9 13, RAYMON-7 2 today. He states he has a therapist now. He is not taking Abilify. [facility] Social History Housing: House Alcohol intake: never Patient Tobacco Use Status: Never used Tobacco e-Cigarette/Vaping Use: Never Used Second Hand Smoke Exposure: No service: No Current occupational status: employed Current occupational exposures/hazards: No Cognitive needs: No Hearing needs: No Vision needs: No Questionnaire PHQ-9 Over the last 2 weeks, how often have you been bothered by any of the following problems? 1. Little interest or pleasure in doing things: more than half the days 2. Feeling down, depressed, or hopeless: several days 3. Trouble falling or staying asleep, or sleeping too much: nearly every day 4. Feeling tired or having little energy: several days 5. Poor appetite or overeating: nearly every day 6. Feeling bad about yourself - or that you are a failure or have let yourself or your family down: several days 7. Trouble concentrating on things, such as reading the newspaper or watching television: several days 8. Moving or speaking so slowly that other people could have noticed. Or the opposite - being so fidgety or restless that you have been moving around a lot more than usual: not at all 9. Thoughts that you would be better off or of hurting yourself in some way: several days Total score: 13 Depression Screening Interpretation: Positive Depression Screening Done: Yes 35135 - PHQ-9 Billing: Yes Source: Developed by Drs. Blaise Lee, Tyra Cotto, Capo Kinsey and colleagues, with an educational jose from [employer]. RAYMON-7 AMB Questionnaire RAYMON-7 Date RAYMON - 7 assessed: 07/15/23 Feeling nervous, anxious, or on edge: 0 = Not at all Not being able to stop or control worryin = Several days Worrying too much about different things: 1 = Several days Trouble relaxin = Not at all Being so restless that it is hard to sit still: 0 = Not at all Becoming easily annoyed or irritable: 0 = Not at all Feeling afraid as if something awful might happen: 0 = Not at all Total RAYMON-7 score (0-4 normal; 5-9 mild; 10-14 moderate; 15-21 severe): 2 Source: Developed by Drs. Blaise Lee, Tyra Cotto, Capo Kinsey and colleagues, with an educational jose from [employer]. RAYMON-7 Assessment Billing RAYMON-7 Assessment Tool: RAYMON-7 Assessment 22553 Review of Systems Const Denies chills, Denies fatigue, Denies fever(s), Denies headache(s) and Denies weakness ENT Denies dizziness and Denies headache(s) Card Denies dyspnea Resp Denies cough, Denies dyspnea, Denies wheezing and Denies other (shortness of breath) Musc Denies numbness and Denies tingling Neuro Denies dizziness, Denies headache(s), Denies numbness, Denies tingling and Denies weakness Psych Reports anxiety and Reports depression Endo Denies fatigue Aller/Immun Denies wheezing Physical exam (Primary Care) Vital Signs: Last Vital Signs Pulse 53 07/15/23 10:43 BP 112/60 07/15/23 10:43 Pulse Ox 97 07/15/23 10:43 Oxygen Delivery Method Room Air 07/15/23 10:43 BMI result Body Mass Index 23.0 Tobacco/Smoking Status: Tobacco use Status Tobacco use date assessed 07/15/23 07/15/23 10:45 Patient Tobacco Use Status Never used Tobacco 07/15/23 10:45 e-Cigarette/Vaping Use Never Used 07/15/23 10:45 PHQ-9: PHQ-9 Score PHQ-9: Total score 13 07/15/23 11:18 Depression Screening Interpretation: Positive Const General: well developed; No acute distress Nutritional Appearance: well nourished Orientation/consciousness: patient oriented x3 HENMT Head: Yes normocephalic and Yes atraumatic Eyes General: appearance normal, both eyes and all related structures Pupils: Equal, round and reactive pupils present EOM: EOMs intact bilaterally Resp Effort & Inspection: normal respiratory effort Neuro General: patient oriented x3 and gait normal Cranial nerves: Yes Equal, round and reactive pupils present Psych Affect: normal affect Assessment and Plan Assessment & Plan (1) Depression with anxiety: Code(s): F41.8 - Other specified anxiety disorders Plan: Patient?is?PHQ-9?has?improved?from?26?down?to?13?and?raymon?7?has?improved?from?13?down?to?2. Still?scoring?significantly?for?depression?but?much?improved.??He?contracts?for?safety. He?is?no?longer?taking?Abilify?which?he?said?made?it?difficult?for?him?to?focus?the?next?day?though?it?did?help?him?with?sleep. He?has?a?new?therapist?and?is?optimistic?about?this.??I?encouraged?him?to?continue?this Also?attending?pain?class?and?dance?class.??Encouraged?these?as?well Will?follow-up?again?in?2?months Medications: Discontinued aripiprazole (Abilify) Discontinued Reason: Patient no longer taking 2 mg PO BEDTIME 5 tabs 0RF 5 days Coding Level of Care Code Est Pt Level 3 (07394) Diagnoses Depression with anxiety F41.8 Additional Codes RAYMON-7 Assessment Billing - RAYMON-7 Assessment Tool: RAYMON-7 Assessment 60144 ([id number])
[2023-07-15 10:43] VITALS: BP 112/60; PULSE 53; O2SAT 97; BMI 23.0
== END 2023-07-15 11:30 | disposition home or self-care (01) ==
PROVIDERS: PCP Family Medicine; Visit Provider Family Medicine
DX: F41.8 Other specified anxiety disorders (principal)
CPT/HCPCS: 99213

== ENCOUNTER 2023-09-16 15:49 | Outpatient (AMB) | payer OTHER, SELFPAY ==
[2023-09-16 15:59] VITALS: BP 118/70; PULSE 77; O2SAT 97; BMI 24.1
--- NOTE | 2023-09-16 15:59 | MHC.PC.OV ---
Vital Signs 09/16/23 15:59 Height 5 ft 8 in Weight 158 lb 6 oz BMI 24.1 BP 118/70 Blood Pressure Location Lt brachial Pulse 77 Pulse Source Pulse Oximeter Pulse Oximetry (%) 97 Oxygen Delivery Method Room Air Intake Visit Reasons: f/u anxiety/depression Intake Note: Patient is here to follow up on anxiety and depression. Allergies No Known Allergies [No Known Allergies*] Allergy (Verified 09/16/23 16:01) Tobacco use date assessed: 09/16/23 Dental Screening Dental Screen Date: 09/16/23 Did you have a dental visit in the last 12 months?: No Did you have a dental problem in the last 6 months where you did not have access to dental care?: No Was dental information given to patient?: Patient has dentist HPI f/u anxiety/depression HPI Details 33 y/o male presents to f/u anxiety/depression. Pt's PHQ-9 had improved last office visit but had still scored significantly for depression. Had encouraged him to continue with his therapist. Had discontinued Abilify as he states it had made it difficult for him to focus the next day. PHQ-9 8, RAYMON-7 4 today. Seeing therapist Amy and pleased w/ her. Pt identifies as queer and mentions alter ego Leyla . Considering hormonal therapy [facility] Family History (Updated 09/16/23 @ 16:03 by Doris Gordillo CMA) Father Substance abuse in family Paternal Grandfather Substance abuse in family Maternal Aunt Mental health disorder Unknown Mental health disorder Social History Housing: House Alcohol intake: never Patient Tobacco Use Status: Never used Tobacco e-Cigarette/Vaping Use: Never Used Second Hand Smoke Exposure: No service: No Current occupational status: employed Current occupational exposures/hazards: No Cognitive needs: No Hearing needs: No Vision needs: No Questionnaire PHQ-9 Over the last 2 weeks, how often have you been bothered by any of the following problems? 1. Little interest or pleasure in doing things: several days 2. Feeling down, depressed, or hopeless: several days 3. Trouble falling or staying asleep, or sleeping too much: several days 4. Feeling tired or having little energy: not at all 5. Poor appetite or overeating: not at all 6. Feeling bad about yourself - or that you are a failure or have let yourself or your family down: more than half the days 7. Trouble concentrating on things, such as reading the newspaper or watching television: more than half the days 8. Moving or speaking so slowly that other people could have noticed. Or the opposite - being so fidgety or restless that you have been moving around a lot more than usual: not at all 9. Thoughts that you would be better off or of hurting yourself in some way: several days Total score: 8 Depression Screening Interpretation: Positive Depression Screening Done: Yes 05623 - PHQ-9 Billing: Yes Source: Developed by Drs. Blaise Lee, Tyra Cotto, Capo Kinsey and colleagues, with an educational jose from [employer]. RAYMON-7 AMB Questionnaire RAYMON-7 Date RAYMON - 7 assessed: 09/16/23 Feeling nervous, anxious, or on edge: 0 = Not at all Not being able to stop or control worryin = Not at all Worrying too much about different things: 0 = Not at all Trouble relaxin = More than half the days Being so restless that it is hard to sit still: 2 = More than half the days Becoming easily annoyed or irritable: 0 = Not at all Feeling afraid as if something awful might happen: 0 = Not at all Total RAYMON-7 score (0-4 normal; 5-9 mild; 10-14 moderate; 15-21 severe): 4 Source: Developed by Drs. Blaise Lee, Tyra Cotto, Capo Kinsey and colleagues, with an educational jose from [employer] [facility]. RAYMON-7 Assessment Billing RAYMON-7 Assessment Tool: RAYMON-7 Assessment 35914 Review of Systems Const Denies chills, Denies fatigue, Denies fever(s), Denies headache(s) and Denies weakness ENT Denies dizziness and Denies headache(s) Card Denies dyspnea Resp Denies cough, Denies dyspnea, Denies wheezing and Denies other (shortness of breath) Musc Denies numbness and Denies tingling Neuro Denies dizziness, Denies headache(s), Denies numbness, Denies tingling and Denies weakness Psych Reports anxiety and Reports depression Endo Denies fatigue Aller/Immun Denies wheezing Physical exam (Primary Care) Vital Signs: Last Vital Signs Pulse 77 09/16/23 15:59 BP 118/70 09/16/23 15:59 Pulse Ox 97 09/16/23 15:59 Oxygen Delivery Method Room Air 09/16/23 15:59 BMI result Body Mass Index 24.1 Tobacco/Smoking Status: Tobacco use Status Tobacco use date assessed 09/16/23 09/16/23 16:10 Patient Tobacco Use Status Never used Tobacco 09/16/23 16:10 e-Cigarette/Vaping Use Never Used 09/16/23 16:10 PHQ-9: PHQ-9 Score PHQ-9: Total score 8 09/16/23 16:15 Depression Screening Interpretation: Positive Const General: well developed; No acute distress Nutritional Appearance: well nourished Orientation/consciousness: patient oriented x3 HENMT Head: Yes normocephalic and Yes atraumatic Eyes General: appearance normal, both eyes and all related structures Pupils: Equal, round and reactive pupils present EOM: EOMs intact bilaterally Resp Effort & Inspection: normal respiratory effort Neuro General: patient oriented x3 and gait normal Cranial nerves: Yes Equal, round and reactive pupils present Psych Affect: normal affect Assessment and Plan Assessment & Plan (1) Depression with anxiety: Code(s): F41.8 - Other specified anxiety disorders Plan: Significant?improvements?with?therapist. Patient?identifies?as clear?and?seems?to?be?exploring?possible?trans?gender?identity. They?say?they?may?want?to?explore?hormone?therapy?and?would?make?a?referral?to?endocrinology?for?this?if?patient?decides?to?move?forward or?simply?wants?consult. Have?referred?to[facility]?in?the?past for?hormonal,?transgender?issues. Continue?with?therapist Call?or?return?to?office?for?worsened?anxiety?or?depression. Patient?contracts?for?safety?and?no?concerns?for?self-harm?today Coding Level of Care Code Est Pt Level 3 (33832) Diagnoses Depression with anxiety F41.8 Additional Codes RAYMON-7 Assessment Billing - RAYMON-7 Assessment Tool: RAYMON-7 Assessment [id number] ([id number])
== END 2023-09-16 16:32 | disposition home or self-care (01) ==
PROVIDERS: PCP Family Medicine; Visit Provider Family Medicine
DX: F41.8 Other specified anxiety disorders (principal)
CPT/HCPCS: 99213

== ENCOUNTER 2024-06-25 10:35 | Outpatient (AMB) | payer OTHER, SELFPAY ==
--- NOTE | 2024-06-25 10:38 | A.OFFPC_ITS ---
Vital Signs 06/25/24 10:44 Height 5 ft 8 in Weight 166 lb 5 oz BMI 25.3 BP 120/68 Blood Pressure Location Lt brachial Position Sitting Respiration 12 Pulse 65 Pulse Source Pulse Oximeter Temp 98.1 F Temp Source Oral Pulse Oximetry (%) 98 Oxygen Delivery Method Room Air Intake Visit Reasons: cpe/therapist referral Intake Note: patient is scheduled for CPE due to insurance change he will need a new referral to a different therapist. Needle Grinder Required: No Allergies No Known Allergies [No Known Allergies*] Allergy (Verified 06/25/24 10:43) Medication List - [facility] Known Home Meds Tobacco use date assessed: 06/25/24 Dental Screening Dental Screen Date: 06/25/24 Did you have a dental visit in the last 12 months?: Yes Did you have a dental problem in the last 6 months where you did not have access to dental care?: No Was dental information given to patient?: No HPI HPI Comments History of Present Illness Details 34 y/o M with boderline hld, anxiety, de pression, R ear hearing loss, gender idenity disorder Social: works at [employer] FHx of CAD as well as valvular problems. Health Maintenance Tdap admin today Flu admin today Specialist Endo - never went to this referral, wants to hold off at this time Derm Optho History of Present Illness The patient is a 34-year-old male presenting with an annual wellness visit. - He has a known history of anxiety and depression; therapy was discontinued due to insurance changes and job transition, and he now seeks a referral. - His family history includes coronary a rtery disease, valvular heart disease, and skin cancer. An echocardiogram previously showed normal results. He has borderline hyperlipidemia. - Reports ongoing sleep disturbances wit h slight improvement but indicates sleep is still suboptimal. - Continues to experience self-destructi ve thoughts, though they are less prominent now. 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 - Concerns exist about social skills at his workplace, [employer], as it contrasts with previous roles at [employer]. - Expresses concerns about eye strain or potential dyslexia. - He has a family history of skin cancer and presents with a facial spot potentially requiring evaluation. Family History - Coronary Artery Disease - Valvular Heart Disease - Skin Cancer (Basal Cell Carcinoma) Social History - The patient is employed at [employer] ere he experiences challenges with social skills. - Previous employment at [employer] [facility] [employer] tasks that better suited his skills. - The patient resides midway between the [employer] and his former therapy location, impacting his therapy attendance due to logistics and insurance changes. - Identfies as queer, nonbinary Health Maintenance - Discussed the importance of sleep and its improvement. - Addressed concerns regarding skin canc er due to family history and potential current pathology. - The patient has received necessary vac cinations during this visit. - Considerations for addressing borderli ne hyperlipidemia through lifestyle modifications are ongoing. Review of Systems - Psychological: Reports persistent self -destructive thoughts. - Neurological: Reports ongoing sleep di sturbances. - Sensory: Reports hearing loss due to a frozen malleus. - Ocular: Expresses concern about eye st rain or possible dyslexia. - Dermatological: Expresses concerns abo ut a facial spot potentially linked to family history of skin cancer. Physical Exam General: Well developed, well nourished, in no acute distress. Appears stated age. Head: Normocephalic, atraumatic. Eyes: Pupils are equal, round and reactive to light and accommodation. Conjunctivae are clear. Vision grossly normal. Referral for general eye exam placed. Ears: TMs clear AU, EACS WNL. cerumen L EAC Nose: Patent, without discharge. Neck: Supple, no adenopathy or thyromegaly. Breast: Edu on SBE Lungs: Clear to auscultation bilaterally. No rales, rhonchi or wheeze noted. Good air flow in all kim. Heart: Regular rate and rhythm. No murmurs, click, rubs or gallops are noted. Abdomen: Bowel sounds present in all quadrants. The abdomen is soft, nontender, with no masses or organomegaly noted. No hernias are noted. : Deferred. Reviewed IGNACIA ecommendations Pulses: Peripheral pulses are equal and palpable bilaterally. Extremities: No clubbing, cyanosis nor edema is noted. Neurologic: Gait and station normal. Cranial Nerves 2-12 intact. Motor strength grossly symmetrical and intact. No sensory loss. Balance normal. Skin: No rashes, ulcers, or lesions noted. Turgor is good. Skin color is good. Hair and nails are without abnormalities. small flat pink area noted to left cheek Psych: Normal eye contact, affect and mood appropriate, and normal interactions. Patient is alert and appropriate to context. Discussion Notes During the visit, the patient and I discussed his ongoing mental health concerns, particularly anxiety and depression, and the importance of resuming therapy with an appropriate counselor. Follow-up with an class a regional drivers was considered; however, the patient prioritized psychiatric care. The possibility of a surgical procedure to address the frozen malleus causing hearing loss was discussed, with potential risks and benefits considered. Referral to a dietary services director will be provided for skin evaluation, given the family history of basal cell carcinoma. I also informed the patient regarding the steps following this visit to secure a suitable counseling referral. The patient was encouraged to pursue a follow-up eye examination, given the visual strain concerns. I provided a list of wellness instructions and entrusted the patient with the responsibility of arranging scheduled follow-ups. Suggestions for improved sleep hygiene and wellness practices were emphasized. Assessment and Plan 1. Anxiety and Depression: Plans are in progress to continue therapy due to insurance changes affecting previous counseling arrangements. 2. Sleep Disturbance: Continues to have sleep disruptions; discussed measures to improve sleep hygiene. 3. Self-destructive Thoughts: Persistent but less severe; further exploration in therapy. 4. Hearing Loss: Linked to a frozen mall eus. Evaluation for possible corrective surgery is ongoing. 5. Borderline Hyperlipidemia: Lifestyle modifications are emphasized. 6. Family History of Coronary Artery Dis ease: Emphasize cardiovascular risk reduction strategies. 7. Family History of Skin Cancer (Basal Cell Carcinoma): Referral for possible concerning spot evaluation. 8. Visual Concerns: Suffers occasional v isual challenges; an eye exam can be considered for assurance. Patient Instructions - Await a call for a referral to a [facility] therapist. - Implement sleep hygiene practices as d iscussed. - Consider undergoing dermatological exa m for the facial spot. - Await potential corrective surgery det ails for hearing loss if deemed necessary. - Understand cholesterol impact and adhe re to lifestyle modifications recommended for hyperlipidemia. - Consider a follow-up eye examination t o rule out any underlying visual issues. - RTO [address] Ita grullon prn Consent Patient was informed and verbally consented to the use of an ambient scribe for clinic note documentation during this visit. [facility] Family History (Reviewed 06/25/24 @ 10:42 by Peggy Pedro [facility]) Father Substance abuse in family Paternal Grandfather Substance abuse in family Maternal Aunt Mental health disorder Unknown Mental health disorder Social History Housing: House Alcohol intake: never Patient Tobacco Use Status: Never used Tobacco e-Cigarette/Vaping Use: Never Used Second Hand Smoke Exposure: No service: No Current occupational status: employed Current occupational exposures/hazards: No Cognitive needs: No Hearing needs: No Vision needs: No Questionnaire PHQ-9 Over the last 2 weeks, how often have you been bothered by any of the following problems? 1. Little interest or pleasure in doing things: several days 2. Feeling down, depressed, or hopeless: more than half the days 3. Trouble falling or staying asleep, or sleeping too much: more than half the days 4. Feeling tired or having little energy: several days 5. Poor appetite or overeating: several days 6. Feeling bad about yourself - or that you are a failure or have let yourself or your family down: several days 7. Trouble concentrating on things, such as reading the newspaper or watching television: several days 8. Moving or speaking so slowly that other people could have noticed. Or the opposite - being so fidgety or restless that you have been moving around a lot more than usual: not at all 9. Thoughts that you would be better off or of hurting yourself in some way: several days Total score: 10 Depression Screening Interpretation: Positive Depression Screening Follow-up: Existing condition and Community Mental Health Worker F/U Depression Screening Done: Yes 14693 - PHQ-9 Billing: Yes Source: Developed by Drs. Blaise Lee, Tyra Cotto, Capo Kinsey and colleagues, with an educational jose from [employer]. Thrive Questionnaire Date Thrive assessed: 06/25/24 I am a: Patient What is your living situation today?: I have a steady place to live Within the past 12 months, did the food you bought not last and you didn't have the money to get more?: I choose not to answer this question Within the past 12 months, did you worry whether your food would run out before you got money to buy more?: Never true Do you have trouble paying for medicines?: No Do you have trouble getting transportation to medical appointments?: No Do you have trouble paying your heating and electricity bill?: No Do you have trouble taking care of your child, family member or friend?: No Do you have trouble with day-to-day activities such as bathing, preparing meals, shopping, managing finances, etc.?: No Are you currently unemployed and looking for a job?: No Are you interested in more education?: Yes Please select the resources that you would like help with: None Currently or been in a relationship where the following occur: No concerns reported THRIVE Score: 0 AUDIT C Alcohol Use Questionnaire (AUDIT-C) 1. How often do you have a drink containing alcohol?: Never 3. How often do you have six or more drinks on one occasion?: Never Total Score: 0 Score Reviewed/Action Taken: Yes RAYMON-7 AMB Questionnaire RAYMON-7 Date RAYMON - 7 assessed: 06/25/24 Feeling nervous, anxious, or on edge: 2 = More than half the days Not being able to stop or control worryin = Several days Worrying too much about different things: 1 = Several days Trouble relaxin = More than half the days Being so restless that it is hard to sit still: 1 = Several days Becoming easily annoyed or irritable: 0 = Not at all Feeling afraid as if something awful might happen: 2 = More than half the days Total RAYMON-7 score (0-4 normal; 5-9 mild; 10-14 moderate; 15-21 severe): 9 Source: Developed by Drs. Blaise Lee, Tyra Cotto, Capo Kinsey and colleagues, with an educational jose from [employer]. RAYMON-7 Assessment Billing RAYMON-7 Assessment Tool: RAYMON-7 Assessment 86315 Physical exam (Primary Care) Tobacco/Smoking Status: Tobacco use Status Tobacco use date assessed 09/16/23 06/25/24 10:39 Patient Tobacco Use Status Never used Tobacco 06/25/24 10:39 e-Cigarette/Vaping Use Never Used 06/25/24 10:39 PHQ-9: PHQ-9 Score PHQ-9: Total score 10 06/25/24 10:39 Depression Screening Interpretation: Positive Depression Screening Follow-up: Existing condition and Community Mental Health Worker F/U Currently or been in a relationship where the following occur: No concerns reported Coding Level of Care Code Est Pt Prev Care 18-39y([id number]) Diagnoses Encounter for general adult medical examination without abnormal findings Z00.00 Borderline hypercholesterolemia E78.00 Family history of coronary artery disease Z82.49 Moderate episode of recurrent major depressive disorder F33.1 Major depression recurrence: recurrent Active/Remission status: currently active Major depression episode severity: moderate RAYMON (generalized anxiety disorder) F41.1 Influenza vaccination administered at current visit Z23 Need for Tdap vaccination Z23 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 F64.0 Family history of basal cell carcinoma Z80.8 Eye exam, routine Z01.00 Other specified hearing loss of right ear, unspecified hearing status on contralateral side H91.8X1 Hearing loss type: other Contralateral hearing status: unspecified Additional Codes RAYMON-7 Assessment Billing - RAYMON-7 Assessment Tool: RAYMON-7 Assessment 50893 ([id number]) PHQ-9 - 24956 - PHQ-9 Billing: Yes ([id number]) Assessment & Plan Assessment & Plan (1) Encounter for general adult medical examination without abnormal findings: Code(s): Z00.00 - Encounter for general adult medical examination without abnormal findings (2) Borderline hypercholesterolemia: Code(s): E78.00 - Pure hypercholesterolemia, unspecified Category: Medical (3) Family history of coronary artery disease: Code(s): Z82.49 - Family history of ischemic heart disease and other diseases of the circulatory system Category: Medical (4) MDD (major depressive disorder): Code(s): F32.9 - Major depressive disorder, single episode, unspecified Category: Medical Qualifiers: Major depression recurrence: recurrent Active/Remission status: currently active Major depression episode severity: moderate Qualified Code(s): F33.1 - Major depressive disorder, recurrent, moderate (5) RAYMON (generalized anxiety disorder): Code(s): F41.1 - Generalized anxiety disorder Category: Medical (6) Influenza vaccination administered at current visit: Code(s): Z23 - Encounter for immunization (7) Need for Tdap vaccination: Code(s): Z23 - Encounter for immunization (8) 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: Code(s): F64.0 - Transsexualism Category: Medical (9) Family history of basal cell carcinoma: Comment: mom and mgm Code(s): Z80.8 - Family history of malignant neoplasm of other organs or systems Category: Medical (10) Eye exam, routine: Code(s): Z01.00 - Encounter for examination of eyes and vision without abnormal findings Category: Medical (11) Hearing loss in right ear: Comment: active w ent who recommended surgery Code(s): H91.91 - Unspecified hearing loss, right ear Category: Medical Qualifiers: Hearing loss type: other Contralateral hearing status: unspecified Qualified Code(s): H91.8X1 - Other specified hearing loss, right ear Plan . Orders: Orders TDaP Immunization Today Z23 - Encounter for immunization Influenza [id number] Immunization Today Z23 - Encounter for immunization Referrals Ophthalmology Referral Z01.00 - Encounter for examination of eyes and vision without abnormal findings Dermatology Referral Z80.8 - Family history of malignant neoplasm of other organs or systems Nurse Navigator Referral F32.9 - Major depressive disorder, single episode, unspecified, F41.1 - Generalized anxiety disorder Medications: New Boostrix Tdap (diphth,pertus(acell),tetanus) 0.5 mL IM ONCE 0.5 mL 0RF NS Z23 - Encounter for immunization Fluarix Triv [id number] (PF) (flu vacc [id number] 6mos up(PF)) 0.5 mL IM ONCE 0.5 mL 0RF NS Z23 - Encounter for immunization Patient Instructions: Crisis Hotlines Suicide prevention, domestic violence, and other crisis hotlines for youth, young adults, and their friends and families. [place] [employer]: The [employer] helps youth who have run away, are thinking about running away, or who already ran away but are ready to come home. Parents and guardians can also contact the hotline if they are worried about their child running away or if their child has already left home. The hotline is available 24 hours a day, seven days a week. Youth, parents, and guardians can also use the online chat feature on the [facility] [facility]'s website to ask for help and get support, or can [place] [address]. [facility] National Suicide Prevention Lifeline: The National Suicide Prevention Lifeline is a network of local crisis centers that are available 04/11 to provide support for youth and adults who are in any kind of emotional crisis. In addition to the main hotline number listed above, there are several other numbers to call depending on your needs: Slovak Language: Deaf and Hard of Hearin1-903.235.3146 Veterans: Disaster Distress: Anyone can also use their online chat feature on their website. National Suicide Prevention Lifeline [facility] Helpline: The [facility] Helpline is available to anyone in [place] who is need of emotional support. Anyone can call or text the helpline to receive help from specially trained volunteers. [place] high school and college students can also get online support through the IMHear_ program. For high school students, volunteers ages 15-18 are available Friday- from 6-9PM. For college students, IMHear_ is available Friday-Friday from 5-9PM. The Kevin Project - The Kevin Project is a 04/11 crisis intervention and suicide prevention hotline for LGBTQ youth. Youth can also text Kevin to for support, or use the online chat feature on the Kevin Project's website. [employer] is available Friday-Friday between 3-10PM. [employer] is available seven days a week between 3-10PM. SafeLink: SafeLink is for anyone who is being affected by domestic violence or dating violence. Volunteers at [employer] speak Sinhala and Slovak, and [employer] also has a service that can provide translation in more than 130 languages. TTY: Health screenings for men You should visit your health care provider regularly, even if you feel healthy. The purpose of these visits is to: Screen for medical issues Assess your risk for future medical problems Encourage a healthy lifestyle Update vaccinations and other preventive care services Help you get to know your provider in case of an illness Information Even if you feel fine, you should still see your provider for regular checkups. These visits can help you avoid problems in the future. For example, the only way to find out if you have high blood pressure is to have it checked regularly. High blood sugar and high cholesterol level also may not have any symptoms in the early stages. Simple blood tests can check for these conditions. There are specific times when you should see your provider or receive specific health screenings. The [place] Preventive Services Task Force publishes a list of recommended screenings. Below are screening guidelines for men ages 40 to 64. BLOOD PRESSURE SCREENING Have your blood pressure checked at least once every year. Watch for blood pressure screenings in your area. Ask your provider if you can stop in to have your blood pressure checked. Ask your provider if you need your blood pressure checked more often if: You have diabetes, heart disease, kidney problems, or are overweight or have certain other health conditions You have a first-degree relative with high blood pressure You are Black Your blood pressure top number is from 120 to 129 mm Hg, or the bottom number is from 70 to 79 mm Hg If the top number is 130 mm Hg or greater or the bottom number is 80 mm Hg or greater, this is considered stage 1 hypertension. Schedule an appointment with your provider to learn how you can lower your blood pressure. Effects of age on blood pressure CHOLESTEROL SCREENING Cholesterol screening should begin at age 35 for men with no known risk factors for coronary heart disease. Repeat cholesterol screening should take place: Every 5 years for men with normal cholesterol levels More often if changes occur in lifestyle (including weight gain and diet) More often if you have diabetes, heart disease, kidney problems, or certain other conditions COLORECTAL CANCER SCREENING If you are under age 45, talk to your provider about getting screened. You may need to be screened if you have a strong family history of colon cancer or polyps. Screening may also be considered if you have risk factors such as a history of inflammatory bowel disease or polyps. If you are age 45 to 75, you should be screened for colorectal cancer. There are several screening tests available: A stool-based fecal occult blood (gFOBT) or fecal immunochemical test (FIT) every year A stool sDNA test every 1 to 3 years Flexible sigmoidoscopy every 5 years or every 10 years with stool testing FIT done every year CT colonography (virtual colonoscopy) every 5 years Colonoscopy every 10 years You may need a colonoscopy more often if you have risk factors for colorectal cancer, such as: Ulcerative colitis A personal or family history of colorectal cancer A history of growths in your colon called adenomatous polyps DENTAL EXAM Go to the dentist once or twice every year for an exam and cleaning. Your dentist will evaluate if you have a need for more frequent visits. DIABETES SCREENING All adults who do not have risk factors for diabetes should be screened starting at age 35 and repeated every 3 years. If you have other risk factors for diabetes, such as a first degree relative with diabetes, overweight or obesity, high blood pressure, prediabetes, or a history of heart disease, you may be tested more often. If you are overweight and have other risk factors, such as high blood pressure and are planning to become , screening is recommended. EYE EXAM Have an eye exam every 2 to 4 years ages 40 to 54 and every 1 to 3 years ages 55 to 64. Your provider may recommend more frequent eye exams if you have vision pr oblems or glaucoma risk. Have an eye exam that includes an examination of your retina (back of your eye) at least every year if you have diabetes. IMMUNIZATIONS Commonly needed vaccines include: Flu shot: get one every year COVID-19 vaccine: ask your provider what is best for you Tetanus-diphtheria and acellular pertussis (Tdap) vaccine: have as one of your tetanus-diphtheria vaccines if you did not receive it as an adolescent Tetanus-diphtheria: have a booster (or Tdap) every 10 years Varicella vaccine: receive 2 doses if you never had chickenpox or the varicella vaccine and were born in 1979 or after Hepatitis B vaccine: receive 2, 3, or 4 doses, depending on your exact circumstances, if you did not receive these as a child or adolescent, until age 59 Shingles (herpes zoster) vaccine: at or after age 50 Ask your provider if you should receive other immunizations, especially if you have certain medical conditions, such as diabetes or are at increased risk for some diseases such as pneumonia. INFECTIOUS DISEASE SCREENING Screening for hepatitis C: all adults ages 18 to 79 should get a one-time test for hepatitis C. Screening for human immunodeficiency virus (HIV): all people ages 15 to 65 should get a one-time test for HIV. Depending on your lifestyle and medical history, you may need to be screened for infections such as syphilis, chlamydia, and other infections. LUNG CANCER SCREENING You should have an annual screening for lung cancer with low-dose computed tomography (LDCT) if: You are age 50 to 80 years AND You have a 20 pack-year smoking history AND You currently smoke or have quit within the past 15 years OSTEOPOROSIS SCREENING If you are age 50 to 64 and have risk factors for osteoporosis, you should discuss screening with your provider. Risk factors can include long-term steroid use, low body weight, smoking, heavy alcohol use, having a fracture after age 50, or a family history of hip fracture or osteoporosis. Osteoporosis PHYSICAL EXAM All adults should visit their provider from time to time, even if they are healthy. The purpose of these visits is to: Screen for diseases Assess risk of future medical problems Encourage a healthy lifestyle Update vaccinations and other preventive care services Maintain a relationship with a provider in case of an illness Your height, weight, and body mass index (BMI) should be checked at every exam. During your exam, your provider may ask you about: Depression and anxiety Diet and exercise Alcohol and tobacco use Safety, such as use of seat belts and smoke detectors Your medicines and risk for interactions PROSTATE CANCER SCREENING If you're 55 through 69 years old, before having the test, talk to your provider about the pros and cons of having a PSA test. Ask about: Whether screening decreases your chance of dying from prostate cancer. Whether there is any harm from prostate cancer screening, such as side effects from testing or overtreatment of cancer when discovered. Whether you have a higher risk of prostate cancer than others. If you are age 55 or younger, screening is not generally recommended. You should talk with your provider about if you have a higher risk for prostate cancer. Risk factors include: Having a family history of prostate cancer (especially a brother or father) Being If you choose to be tested, the PSA blood test is repeated over time (yearly or less often), though the best frequency is not known. Prostate examinations are no longer routinely done on men with no symptoms. Prostate cancer SKIN EXAM Your provider may check your skin for signs of skin cancer, especially if you're at high risk. People at high risk include those who have had skin cancer before, have close relatives with skin cancer, or have a weakened immune system. TESTICULAR EXAM The [place] Preventive Services Task Force (USPSTF) now recommends against performing testicular self-exams. Doing testicular self-exams has been shown to have little to no benefit. Health screenings for men You should visit your health care provider regularly, even if you feel healthy. The purpose of these visits is to: Screen for medical issues Assess your risk for future medical problems Encourage a healthy lifestyle Update vaccinations and other preventive care services Help you get to know your provider in case of an illness Information Even if you feel fine, you should still see your provider for regular checkups. These visits can help you avoid problems in the future. For example, the only way to find out if you have high blood pressure is to have it checked regularly. High blood sugar and high cholesterol level also may not have any symptoms in the early stages. Simple blood tests can check for these conditions. There are specific times when you should see your provider or receive specific health screenings. The [place] Preventive Services Task Force publishes a list of recommended screenings. Below are screening guidelines for men ages 40 to 64. BLOOD PRESSURE SCREENING Have your blood pressure checked at least once every year. Watch for blood pressure screenings in your area. Ask your provider if you can stop in to have your blood pressure checked. Ask your provider if you need your blood pressure checked more often if: You have diabetes, heart disease, kidney problems, or are overweight or have certain other health conditions You have a first-degree relative with high blood pressure You are Black Your blood pressure top number is from 120 to 129 mm Hg, or the bottom number is from 70 to 79 mm Hg If the top number is 130 mm Hg or greater or the bottom number is 80 mm Hg or greater, this is considered stage 1 hypertension. Schedule an appointment with your provider to learn how you can lower your blood pressure. Effects of age on blood pressure CHOLESTEROL SCREENING Cholesterol screening should begin at age 35 for men with no known risk factors for coronary heart disease. Repeat cholesterol screening should take place: Every 5 years for men with normal cholesterol levels More often if changes occur in lifestyle (including weight gain and diet) More often if you have diabetes, heart disease, kidney problems, or certain other conditions COLORECTAL CANCER SCREENING If you are under age 45, talk to your provider about getting screened. You may need to be screened if you have a strong family history of colon cancer or polyps. Screening may also be considered if you have risk factors such as a history of inflammatory bowel disease or polyps. If you are age 45 to 75, you should be screened for colorectal cancer. There are several screening tests available: A stool-based fecal occult blood (gFOBT) or fecal immunochemical test (FIT) every year A stool sDNA test every 1 to 3 years Flexible sigmoidoscopy every 5 years or every 10 years with stool testing FIT done every year CT colonography (virtual colonoscopy) every 5 years Colonoscopy every 10 years You may need a colonoscopy more often if you have risk factors for colorectal cancer, such as: Ulcerative colitis A personal or family history of colorectal cancer A history of growths in your colon called adenomatous polyps DENTAL EXAM Go to the dentist once or twice every year for an exam and cleaning. Your dentist will evaluate if you have a need for more frequent visits. DIABETES SCREENING All adults who do not have risk factors for diabetes should be screened starting at age 35 and repeated every 3 years. If you have other risk factors for diabetes, such as a first degree relative with diabetes, overweight or obesity, high blood pressure, prediabetes, or a history of heart disease, you may be tested more often. If you are overweight and have other risk factors, such as high blood pressure and are planning to become , screening is recommended. EYE EXAM Have an eye exam every 2 to 4 years ages 40 to 54 and every 1 to 3 years ages 55 to 64. Your provider may recommend more frequent eye exams if you have vision problems or glaucoma risk. Have an eye exam that includes an examination of your retina (back of your eye) at least every year if you have diabetes. IMMUNIZATIONS Commonly needed vaccines include: Flu shot: get one every year COVID-19 vaccine: ask your provider what is best for you Tetanus-diphtheria and acellular pertussis (Tdap) vaccine: have as one of your tetanus-diphtheria vaccines if you did not receive it as an adolescent Tetanus-diphtheria: have a booster (or Tdap) every 10 years Varicella vaccine: receive 2 doses if you never had chickenpox or the varicella vaccine and were born in 1979 or after Hepatitis B vaccine: receive 2, 3, or 4 doses, depending on your exact circumstances, if you did not receive these as a child or adolescent, until age 59 Shingles (herpes zoster) vaccine: at or after age 50 Ask your provider if you should receive other immunizations, especially if you have certain medical conditions, such as diabetes or are at increased risk for some diseases such as pneumonia. INFECTIOUS DISEASE SCREENING Screening for hepatitis C: all adults ages 18 to 79 should get a one-time test for hepatitis C. Screening for human immunodeficiency virus (HIV): all people ages 15 to 65 should get a one-time test for HIV. Depending on your lifestyle and medical history, you may need to be screened for infections such as syphilis, chlamydia, and other infections. LUNG CANCER SCREENING You should have an annual screening for lung cancer with low-dose computed tomography (LDCT) if: You are age 50 to 80 years AND You have a 20 pack-year smoking history AND You currently smoke or have quit within the past 15 years OSTEOPOROSIS SCREENING If you are age 50 to 64 and have risk factors for osteoporosis, you should discuss screening with your provider. Risk factors can include long-term steroid use, low body weight, smoking, heavy alcohol use, having a fracture after age 50, or a family history of hip fracture or osteoporosis. Osteoporosis PHYSICAL EXAM All adults should visit their provider from time to time, even if they are healthy. The purpose of these visits is to: Screen for diseases Assess risk of future medical problems Encourage a healthy lifestyle Update vaccinations and other preventive care services Maintain a relationship with a provider in case of an illness Your height, weight, and body mass index (BMI) should be checked at every exam. During your exam, your provider may ask you about: Depression and anxiety Diet and exercise Alcohol and tobacco use Safety, such as use of seat belts and smoke detectors Your medicines and risk for interactions PROSTATE CANCER SCREENING If you're 55 through 69 years old, before having the test, talk to your provider about the pros and cons of having a PSA test. Ask about: Whether screening decreases your chance of dying from prostate cancer. Whether there is any harm from prostate cancer screening, such as side effects from testing or overtreatment of cancer when discovered. Whether you have a higher risk of prostate cancer than others. If you are age 55 or younger, screening is not generally recommended. You should talk with your provider about if you have a higher risk for prostate cancer. Risk factors include: Having a family history of prostate cancer (especially a brother or father) Being If you choose to be tested, the PSA blood test is repeated over time (yearly or less often), though the best frequency is not known. Prostate examinations are no longer routinely done on men with no symptoms. Prostate cancer SKIN EXAM Your provider may check your skin for signs of skin cancer, especially if you're at high risk. People at high risk include those who have had skin cancer before, have close relatives with skin cancer, or have a weakened immune system. TESTICULAR EXAM The [place] Preventive Services Task Force (USPSTF) now recommends against performing testicular self-exams. Doing testicular self-exams has been shown to have little to no benefit. Health screenings for men You should visit your health care provider regularly, even if you feel healthy. The purpose of these visits is to: Screen for medical issues Assess your risk for future medical problems Encourage a healthy lifestyle Update vaccinations and other preventive care services Help you get to know your provider in case of an illness Information Even if you feel fine, you should still see your provider for regular checkups. These visits can help you avoid problems in the future. For example, the only way to find out if you have high blood pressure is to have it checked regularly. High blood sugar and high cholesterol level also may not have any symptoms in the early stages. Simple blood tests can check for these conditions. There are specific times when you should see your provider or receive specific health screenings. The [place] Preventive Services Task Force publishes a list of recommended screenings. Below are screening guidelines for men ages 40 to 64. BLOOD PRESSURE SCREENING Have your blood pressure checked at least once every year. Watch for blood pressure screenings in your area. Ask your provider if you can stop in to have your blood pressure checked. Ask your provider if you need your blood pressure checked more often if: You have diabetes, heart disease, kidney problems, or are overweight or have certain other health conditions You have a first-degree relative with high blood pressure You are Black Your blood pressure top number is from 120 to 129 mm Hg, or the bottom number is from 70 to 79 mm Hg If the top number is 130 mm Hg or greater or the bottom number is 80 mm Hg or greater, this is considered stage 1 hypertension. Schedule an appointment with your provider to learn how you can lower your blood pressure. Effects of age on blood pressure CHOLESTEROL SCREENING Cholesterol screening should begin at age 35 for men with no known risk factors for coronary heart disease. Repeat cholesterol screening should take place: Every 5 years for men with normal cholesterol levels More often if changes occur in lifestyle (including weight gain and diet) More often if you have diabetes, heart disease, kidney problems, or certain other conditions COLORECTAL CANCER SCREENING If you are under age 45, talk to your provider about getting screened. You may need to be screened if you have a strong family history of colon cancer or polyps. Screening may also be considered if you have risk factors such as a history of inflammatory bowel disease or polyps. If you are age 45 to 75, you should be screened for colorectal cancer. There are several screening tests available: A stool-based fecal occult blood (gFOBT) or fecal immunochemical test (FIT) every year A stool sDNA test every 1 to 3 years Flexible sigmoidoscopy every 5 years or every 10 years with stool testing FIT done every year CT colonography (virtual colonoscopy) every 5 years Colonoscopy every 10 years You may need a colonoscopy more often if you have risk factors for colorectal cancer, such as: Ulcerative colitis A personal or family history of colorectal cancer A history of growths in your colon called adenomatous polyps DENTAL EXAM Go to the dentist once or twice every year for an exam and cleaning. Your dentist will evaluate if you have a need for more frequent visits. DIABETES SCREENING All adults who do not have risk factors for diabetes should be screened starting at age 35 and repeated every 3 years. If you have other risk factors for diabetes, such as a first degree relative with diabetes, overweight or obesity, high blood pressure, prediabetes, or a history of heart disease, you may be tested more often. If you are overweight and have other risk factors, such as high blood pressure and are planning to become , screening is recommended. EYE EXAM Have an eye exam every 2 to 4 years ages 40 to 54 and every 1 to 3 years ages 55 to 64. Your provider may recommend more frequent eye exams if you have vision problems or glaucoma risk. Have an eye exam that includes an examination of your retina (back of your eye) at least every year if you have diabetes. IMMUNIZATIONS Commonly needed vaccines include: Flu shot: get one every year COVID-19 vaccine: ask your provider what is best for you Tetanus-diphtheria and acellular pertussis (Tdap) vaccine: have as one of your tetanus-diphtheria vaccines if you did not receive it as an adolescent Tetanus-diphtheria: have a booster (or Tdap) every 10 years Varicella vaccine: receive 2 doses if you never had chickenpox or the varicella vaccine and were born in 1980 or after Hepatitis B vaccine: receive 2, 3, or 4 doses, depending on your exact circumstances, if you did not receive these as a child or adolescent, until age 59 Shingles (herpes zoster) vaccine: at or after age 50 Ask your provider if you should receive other immunizations, especially if you have certain medical conditions, such as diabetes or are at increased risk for some diseases such as pneumonia. INFECTIOUS DISEASE SCREENING Screening for hepatitis C: all adults ages 18 to 79 should get a one-time test for hepatitis C. Screening for human immunodeficiency virus (HIV): all people ages 15 to 65 should get a one-time test for HIV. Depending on your lifestyle and medical history, you may need to be screened for infections such as syphilis, chlamydia, and other infections. LUNG CANCER SCREENING You should have an annual screening for lung cancer with low-dose computed tomography (LDCT) if: You are age 50 to 80 years AND You have a 20 pack-year smoking history AND You currently smoke or have quit within the past 15 years OSTEOPOROSIS SCREENING If you are age 50 to 64 and have risk factors for osteoporosis, you should discuss screening with your provider. Risk factors can include long-term steroid use, low body weight, smoking, heavy alcohol use, having a fracture after age 50, or a family history of hip fracture or osteoporosis. Osteoporosis PHYSICAL EXAM All adults should visit their provider from time to time, even if they are healthy. The purpose of these visits is to: Screen for diseases Assess risk of future medical problems Encourage a healthy lifestyle Update vaccinations and other preventive care services Maintain a relationship with a provider in case of an illness Your height, weight, and body mass index (BMI) should be checked at every exam. During your exam, your provider may ask you about: Depression and anxiety Diet and exercise Alcohol and tobacco use Safety, such as use of seat belts and smoke detectors Your medicines and risk for interactions PROSTATE CANCER SCREENING If you're 55 through 69 years old, before having the test, talk to your provider about the pros and cons of having a PSA test. Ask about: Whether screening decreases your chance of dying from prostate cancer. Whether there is any harm from prostate cancer screening, such as side effects from testing or overtreatment of cancer when discovered. Whether you have a higher risk of prostate cancer than others. If you are age 55 or younger, screening is not generally recommended. You should talk with your provider about if you have a higher risk for prostate cancer. Risk factors include: Having a family history of prostate cancer (especially a brother or father) Being If you choose to be tested, the PSA blood test is repeated over time (yearly or less often), though the best frequency is not known. Prostate examinations are no longer routinely done on men with no symptoms. Prostate cancer SKIN EXAM Your provider may check your skin for signs of skin cancer, especially if you're at high risk. People at high risk include those who have had skin cancer before, have close relatives with skin cancer, or have a weakened immune system. TESTICULAR EXAM The [place] Preventive Services Task Force (USPSTF) now recommends against performing testicular self-exams. Doing testicular self-exams has been shown to have little to no benefit.
[2024-06-25 10:44] VITALS: BP 120/68; PULSE 65; RESP 12; TEMP 36.7; O2SAT 98; BMI 25.3
--- OUTSIDE RECORDS SUMMARY | 2024-06-25 12:07 | XMS_ITS | Data Portability ---
Author Organization [place] - [facility], Allergy Address [address] [address] Care Team Providers Care Daycare Director Name Role Phone JAIME DIMAS Primary Care Provider Assessment Encounter Date Assessment Date Assessment LastModified by Organization Details LastModified Time 02/02/2024 02/02/2024 Patient with apparent childhood onset right sided conductive hearing loss. I reviewed the CAT scan personally. While the scan was read as normal, on my reading there is likely a bony fixation of the head of the malleus in the far anterior epitympanum. Today we discussed the options of continued observation versus right sided amplification versus right sided ear surgery. With regards to surgery, the site of fixation is very superior and anterior, and is unlikely to be directly addressed via a transcanal approach, especially in light of his somewhat narrow external auditory canal. We discussed that if we did proceed with surgery I would start with a transcanal exploration and assessment of the ossicular chain. If the stapes is the site of fixation, we would proceed with laser stapedotomy with vein graft. Brochure provided and this was discussed in some detail. If the malleus is confirmed as the site of fixation, I would very likely have to convert to a postauricular incision with mastoidectomy to be able to assess the epitympanum and away that would allow for lasering of the abnormal side of fixation. Risks and benefits of these procedures discussed including the 1% risk of sensorineural hearing loss as well as the 3 to 4% risk that the hearing will stay the same. But overall about a 90 to 95% chance that he will see a significant improvement in the hearing in the ear. We did discuss the possibility of taste disturbance as result of surgery that could be temporary or long-term. After full discussion, the patient would like to learn more about amplification options before making a decision on surgery or not. We will set him up for hearing aid evaluation. He is medically cleared for amplification on the right. He will let me know if he wants to proceed with surgical intervention. [email or web address] Not available 02/02/2024 12:39:27 02/16/2024 02/16/2024 The patient is interested in investigating the benefit of amplification at this time. His insurance will cover a hearing aid at an in-network provider and he was given information on where he can obtain amplification using his insurance benefit. [email or web address] Not available 02/23/2024 13:07:52 Plan of Treatment Reminders Order Date Submit Date Provider Last Modified By Organization Details Last Modified Time Details Appointments None record ed. Lab None record ed. Referral None record ed. Procedures None record ed. Surgeries None record ed. Imaging None record ed. Medication Orders None record ed. Patient TargetsNo targets recorded. Patient InstructionsNo instructions recorded. Reason for Referral None Reported. Results Created Date Observation Date Name Description Value Unit Range Abnormal Flag Note LastModifiedBy Organization Detail LastModifiedTime 02/02/20 24 09/20/2023 audio gram No observ ation record ed. Not Available 01/13 12:45:59 02/03/20 audio gram No observ ation record ed. [email or web address] Not Available 02/15 15:11:49 Result Notes None recorded. Problems Name Problem SNOMED Code Status Onset Date Resolution Date Notes Provider Name and Address Organization Details Recorded Time Conductiv e hearing loss 67411182 Active 2022 Conductiv e hearing loss, unilatera l, right ear, with unrestric pritesh hearing on the contralat eral side; Note: Date Diagnosed : 08/16/2022 12:26 PM (H90.11) Not Available [facility] Impacted cerumen in right ear [id number] 26861 Active 2022 Impacted cerumen, right ear; Note: Date Diagnosed : 08/16/2022 12:27 PM (H61.21) Not Available [facility] 03:14:23 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 Procedures Surgical History Date Name Laterality Status Provider Name and Address Organization Details Recorded Time 02/02/2024 Air & Speech Audio with Tymps (56875, 20406 & 84672) completed Mariusz LAND 100 [facility],[address] [address] [address], [place], [address], [facility] - [facility] 02/02/2024 11:31:17 Imaging Results Imaging Date Name Status LastModified by [facility] Details LastModified Time 09/20/2023 audiogram completed [email or web address] Information n ot available 02/02/2024 12:45:59 02/03/2024 audiogram completed [email or web address] Information no t available 02/16/2024 15:11:49 Procedure Notes None recorded. Medical Equipment None Reported. Allergies No known drug allergies Medications Name Sig Start Date Stop Date Status Note LastModified by Organization Details LastModified Time terbinafi ne HCl 250 mg tablet 02/01 completed Medicati on ID: [id number] B rand Name: terbinaf ine HCl Send Method: E-Prescr ibed Sub s Allowed: subs [facility] : terbinaf ine HCl Not Available Not Available Not Available hydroxyzi ne HCl 25 mg tablet TAKE 1-2 TABLET BY MOUTH EVERY NIGHT AT BEDTIME NEEDED FOR INSOMNIA 02/01 completed Not Available Not Available Not Available aripipraz ole 2 mg tablet TAKE 1 TABLET BY MOUTH AT BEDTIME FOR 5 DAYS 02/01 completed Not Available Not Available Not Available Paxlovid 300 mg (150 mg x 2)-100 mg tablets in a dose pack 02/01 completed Medicati on ID: [id number] B rand Name: Paxlovid (EUA) Se nd Method: E-Prescr ibed Sub s Allowed: subs OK Medic Yuan ericName : Mello (EUA) Not Available Not Available Not Available Vitals Date Recorded Body height Body weight Provider Name and Address Organization Details Last Updated DateTime 02/02/2024 170.18 cm 86488.93 g Nini Sher [place] - [facility] 02/02/2024 11:51:18 Social History None recorded. Functional Status None recorded. Mental Status None recorded. Family History Nothing Reported. Medical History No medical history recorded. Past Encounters Encounter ID Performer Location Encounter Start Date Encounter Closed Date Diagnosis/Indication Diagnosis SNOMED-CT Code Diagnosis ICD10 Code Diagnosis Note [id number] NEGRO QUINTEROS MD [facility] [address] [address] 02/02/2024 10:35:44 02/02/2024 12:21:48 Conductive hearing loss [id number] H90.11 Audiologic al evaluation results: Right ear: {{Normal N ormal through 2 kHz Mild* Moderate M oderately- severe Sev ere Profou nd}} {{hearing sloping to a mild slopi ng to a moderate s loping to moderately severe slo ping to severe slo ping to profound f lat high frequency low frequency* mid frequency cookie bite carmen curve}} {{with sen sorineural hearing loss with condu ctive hearing loss with* mixe d hearing loss with}} {{excellen t* good fa ir poor no measurable }} word recognitio n. Left ear: {{Normal* Normal through 2 kHz Mild M oderate Mo derately-s evere Sharon re Profoun d}} {{hearing* sloping to a mild slopi ng to a moderate s loping to moderately severe slo ping to severe slo ping to profound f lat high frequency low frequency mid frequency cookie bite carmen curve}} {{with* se nsorineura l hearing loss with condu ctive hearing loss with mixed hearing loss with}} {{excellen t* good fa ir poor no measurable }} word recognitio n. Tympanomet ry: Right Ear:{{Type A* Type As Type Ad Type C Type C, shallow & rounded Ty pe B Type B with large volume Cou ld not maintain a hermetic seal}} Left Ear:{{Type A* Type As Type Ad Type C Type C, shallow & rounded Ty pe B Type B with large volume Cou ld not maintain a hermetic seal}} Ossicular ankylosis 9748 [id number] 4.311 [id number] Mariusz [place] 100 [facility], [address] [place] [address] 02/16/2024 14:43:50 02/17/2024 07:20:40 Conductive hearing loss 08681131 H90.11 Health Concerns Section Related Observation LastModified by Organization Detai ls LastModified Time None Recorded Concern Status LastModified by Organization Details LastModified Time None Recorded Advance Directives Directive None Recorded Payers Encounter Date Sequence Insurance Name Policy Number Policy Summers Covered Member ID Summers Member ID Guarantor Name 02/02/2024 1 [facility] (MEDICAID HMO) [facility] Deacon Jones [id number] Deacon Jones 02/16/2024 1 [facility] (MEDICAID HMO) [facility] Deacon Jones [id number] Deacon Jones Notes Date Note Type Note Provider Name and Address Organization Details Recorded Time 02/02/2024 text/html 33-year-old male previously seen by Dr. Kessler back in February 2023. He was noted to have a right sided maximal conductive hearing loss which patient reports has been present since childhood. CAT scan of the temporal bones was completed at [facility] back in September 2022 and read as normal. Patient referred to me for discussion of options for treatment. NEGRO QUINTEROS MD [address], [address], [place] - [facility] 02/02/2024 12:39:53 02/16/2024 text/html Patient here to discuss amplification as a first time user. He reports longstanding hearing loss in the right ear from childhood but has not attempted amplification in adulthood. He was also recommended surgery to investigate whether surgical repair would remedy the hearing loss. Mariusz LAND 100 [facility],[place] [address], [place], [address], [place] - [facility] 02/23/2024 13:08:19
== END 2024-06-25 11:12 | disposition home or self-care (01) ==
LOC: HO.HMCFM 10:36
PROVIDERS: PCP Family Medicine; Visit Provider Nurse Practitioner Family
DX: Z00.00 Encounter for general adult medical examination without abnormal findings (principal); E78.00 Pure hypercholesterolemia, unspecified; Z82.49 Family history of ischemic heart disease and other diseases of the circulatory system; F33.1 Major depressive disorder, recurrent, moderate; F41.1 Generalized anxiety disorder; Z23 Encounter for immunization; F64.0 Transsexualism; Z80.8 Family history of malignant neoplasm of other organs or systems; H91.8X1 Other specified hearing loss, right ear

== ENCOUNTER → 2024-06-25 10:35 | Outpatient (BNVA) | payer OTHER, SELFPAY | PROVIDERS: PCP Family Medicine; Visit Provider Nurse Practitioner Family | DX: Z00.00 Encounter for general adult medical examination without abnormal findings (principal); Z23 Encounter for immunization; E78.00 Pure hypercholesterolemia, unspecified; F33.1 Major depressive disorder, recurrent, moderate; F41.1 Generalized anxiety disorder; F64.0 Transsexualism; H91.8X1 Other specified hearing loss, right ear; Z82.49 Family history of ischemic heart disease and other diseases of the circulatory system; Z80.8 Family history of malignant neoplasm of other organs or systems | CPT/HCPCS: 90471; 90472; 90656; 90715; 96127 ==

== ENCOUNTER 2024-11-16 14:00 | Outpatient (REF) | payer OTHER, SELFPAY ==
[2024-11-17 12:35] LABS: CT PCR Urine NOT DETECTED (Not Detect.); NG PCR Urine NOT DETECTED (Not Detect.)
== END 2024-11-16 14:01 | disposition home or self-care (01) ==
LOC: HO.LAB 14:00
PROVIDERS: PCP Family Medicine; Visit Provider Family Medicine
DX: Z11.3 Encounter for screening for infections with a predominantly sexual mode of transmission (principal); Z11.8 Encounter for screening for other infectious and parasitic diseases
CPT/HCPCS: 36415; 87491; 87591

== ENCOUNTER 2024-11-16 14:00 | Outpatient (AMB) | payer OTHER, SELFPAY ==
--- NOTE | 2024-11-16 14:35 | MHC.PC.OV ---
Vital Signs 11/16/24 14:44 Height 5 ft 8 in Weight 166 lb BMI 25.2 BP 100/60 Blood Pressure Location Rt brachial Position Sitting Respiration 12 Pulse 52 Pulse Source Pulse Oximeter Temp 98.1 F Temp Source Oral Pulse Oximetry (%) 97 Oxygen Delivery Method Room Air Intake Visit Reasons: Referral Program Management Professional Intake Note: patient would like to touch bases with pcp and would also like full std panel Allergies No Known Allergies (No Known Allergies*) Allergy (Verified 11/16/24 14:38) Medication List - Last Reconciled 11/16/24 by Enrico Miller MD No Known Home Meds Tobacco use date assessed: 06/25/24 Dental Screening Dental Screen Date: 06/25/24 HPI Referral Program Management Professional HPI Details 34 y/o male presents today to request endocrinology referral. Gender identity disorder and had been wanting an endocrinology to assist with transitioning. Pt is requesting STD testing. Denies any symptoms. HPI Comments History of Present Illness Details Documentation assistance for Enrico Miller MD, was provided by Jesus Pulido, Engine Setter on 11/16/2024 at 3:10 PM EST. I, Dr. Miller, have read, observed, and verified documentation. [facility] Family History Father Substance abuse in family Paternal Grandfather Substance abuse in family Maternal Aunt Mental health disorder Unknown Mental health disorder Social History Housing: House Alcohol intake: never Patient Tobacco Use Status: Never used Tobacco e-Cigarette/Vaping Use: Never Used Second Hand Smoke Exposure: No service: No Current occupational status: employed Current occupational exposures/hazards: No Cognitive needs: No Hearing needs: No Vision needs: No Questionnaire Thrive Questionnaire Date Thrive assessed: 06/25/24 I am a: Patient What is your living situation today?: I have a steady place to live Within the past 12 months, did the food you bought not last and you didn't have the money to get more?: I choose not to answer this question Within the past 12 months, did you worry whether your food would run out before you got money to buy more?: Never true Do you have trouble paying for medicines?: No Do you have trouble getting transportation to medical appointments?: No Do you have trouble paying your heating and electricity bill?: No Do you have trouble taking care of your child, family member or friend?: No Do you have trouble with day-to-day activities such as bathing, preparing meals, shopping, managing finances, etc.?: No Are you currently unemployed and looking for a job?: No Are you interested in more education?: Yes Please select the resources that you would like help with: None Currently or been in a relationship where the following occur: No concerns reported THRIVE Score: 0 RAYMON-7 AMB Questionnaire RAYMON-7 Date RAYMON - 7 assessed: 06/25/24 Source: Developed by Drs. Blaise Lee, Tyra Cotto, Capo Kinsey and colleagues, with an educational jose from [employer]. Review of Systems Const Denies chills, Denies fatigue, Denies fever(s), Denies headache(s) and Denies weakness ENT Denies dizziness and Denies headache(s) Card Denies dyspnea Resp Denies cough, Denies dyspnea, Denies wheezing and Denies other (shortness of breath) Musc Denies numbness and Denies tingling Neuro Denies dizziness, Denies headache(s), Denies numbness, Denies tingling and Denies weakness Psych Denies anxiety and Denies depression Endo Denies fatigue Aller/Immun Denies wheezing Physical exam (Primary Care) Vital Signs: Last Vital Signs Temp 98.1 F 11/16/24 14:44 Pulse 52 11/16/24 14:44 Resp 12 11/16/24 14:44 BP 100/60 11/16/24 14:44 Pulse Ox 97 11/16/24 14:44 Oxygen Delivery Method Room Air 11/16/24 14:44 BMI result Body Mass Index 25.2 Tobacco/Smoking Status: Tobacco use Status Tobacco use date assessed 06/25/24 11/16/24 14:40 Patient Tobacco Use Status Never used Tobacco 11/16/24 14:40 e-Cigarette/Vaping Use Never Used 11/16/24 14:40 Thrive Assessment: Date of Thrive Assessment Date Thrive assessed 06/25/24 11/16/24 14:40 Currently or been in a relationship where the following occur: No concerns reported Const General: well developed; No acute distress Nutritional Appearance: well nourished Orientation/consciousness: patient oriented x3 HENMT Head: Yes normocephalic and Yes atraumatic Eyes General: appearance normal, both eyes and all related structures Pupils: Equal, round and reactive pupils present EOM: EOMs intact bilaterally Resp Effort & Inspection: normal respiratory effort Neuro General: patient oriented x3 and gait normal Cranial nerves: Yes Equal, round and reactive pupils present Psych Affect: normal affect Coding Level of Care Code Est Pt Level 3 (14857) Diagnoses 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 Checking labs as below. Will forward results to [facility]. Patient also notes potential exposure to STD/STI Denies any symptoms Will check STD STI lab work. Will call patient if action is required Orders: Orders HIV Ab/Ag Today Z11.3 - Encounter for screening for infections with a predominantly sexual mode of transmission Complete Blood Count Auto Diff Today Z00.00 - Encounter for general adult medical examination without abnormal findings Lipid Panel Today Z00.00 - Encounter for general adult medical examination without abnormal findings TSH reflex Free T4 Today Z00.00 - Encounter for general adult medical examination without abnormal findings Lutenizing Hormone Today F64.9 - Gender identity disorder, unspecified Follicle Stimulating Hormone Today F64.9 - Gender identity disorder, unspecified Estradiol Ultra Sensitive Today F64.9 - Gender identity disorder, unspecified CT NG by PCR Vag/Cerv Today Z11.3 - Encounter for screening for infections with a predominantly sexual mode of transmission Hepatitis B,C Profile Today Z11.3 - Encounter for screening for infections with a predominantly sexual mode of transmission Syphilis Screen Today Z11.3 - Encounter for screening for infections with a predominantly sexual mode of transmission Comprehensive [place]. Panel Fast Today Z00.00 - Encounter for general adult medical examination without abnormal findings Microalbumin, Random (w Creat) Today I10 - Essential (primary) hypertension Prothrombin Time INR Today F64.9 - Gender identity disorder, unspecified Testosterone, Free/Total Today F64.9 - Gender identity disorder, unspecified Prolactin Today F64.9 - Gender identity disorder, unspecified
--- OUTSIDE RECORDS SUMMARY | 2024-11-16 14:42 | XMS_ITS | Clinical Summary ---
Author Organization [facility] Address [address] [place] [address] [place] [address] Phone Care Team Providers Care Valet Parking Attendant Name Role Phone Enrico Miller MD Primary Care Provider Kaia Kent PA Unavailable [phone] Allergies No known active allergies Medications No known medications Active Problems No known active problems Encounters Date Type Department Care Team Description 11/16/2024 9:00 AM EDT [facility]icine [facility] [address] [place] [address] Kaia Kent PA Gender dysphoria in adult (Primary Dx) 11/16/2024 Orders Only [facility] [address] [place] [address] Kaia Kent PA Gender dysphoria in adult (Primary Dx); Vitamin D deficiency, unspecified; Lipid screening; Vitamin D deficiency 11/16/2024 Telephone [facility] [address] [place] [address] Kaia Kent PA 11/09/2024 2:30 PM EDT [facility] [address] [place] [address] Kaia Kent PA Vitamin D deficiency, unspecified (Primary Dx); Lipid screening; Gender dysphoria in adult; Medication management 11/09/2024 Telephone [facility] [address] [place] [address] Kaia Kent PA 10/26/2024 [facility]phone [facility] [address] [place] [address] Kaia Kent PA 10/12/2024 Telephone [facility] [address] [place] [address] Kaia Kent PA 10/12/2024 Telephone [facility] [address] [place] [address] Kaia Kent PA from Last 3 Months Family History Medical History Relation Comments Heart disease Father quad bypass 2020 Heart valve surgery Father Arthritis Mother Vascular disease Sister surgically angelia ected in legs Hypercoagulable state Neg Hx Liver disease Neg Hx Migraines Neg Hx Osteoporosis Neg Hx Relation Status Comments Father Alive Mother Alive Sister Alive Social History Tobacco Use Types Packs/Day Years Used Date Smoking Tobacco: Never Passive Smoke Exposure: Never Smokeless Tobacco: Never Tobacco Cessation:Counseling Given: Not Answered Alcohol Use Standard Drinks/Week Comments Never 0 (1 standard drink = 0.6 oz pur e alcohol) denies Child or Family Care Answer Date Record ed Do you have problems with on e of the following making it difficult for you to work, study, or receive health care? No 11/09/2024 Education Answer Date Recorded Are you interested in help w ith more adult education (for example, completing high school, GED, job training, learning the [place] language, technical skills, or developing parenting skills)? No 11/09/2024 Are you concerned about learning? Not on file 11/09/2024 No 11/09/2024 Yes 11/09/2024 Food Answer Date Recorded Within the past 6 months we worried whether our food would run out before we got money to buy more. Never True 11/09/2024 Within the past 6 months the food we bought just didn't last and we didn't have enough money to get more. Never True Residential Stability Answer Date Recor ded What is your housing situation today? I have sharon sing 11/09/2024 How many times have you move d in the past 12 months? Zero (I did not move) 11/09/2024 Paying for Meds Answer Date Recorded Do you have trouble paying for medicines? No 11/09/2024 Paying Utility Bills Answer Date Record ed Do you have trouble paying your heating or elect ricity bill? No 11/09/2024 Transportation Answer Date Recorded Has the lack of transportati on kept you from medical appointments or from getting medications? No 11/09/2024 Unemployment Answer Date Recorded Are you currently unemployed or working on a part-time or temporary basis, and looking for work? No 11/09/2024 Digital Access Answer Date Recorded No 11/09/2024 Yes 11/09/2024 Do you have reliable internet access at home? Ye s 11/09/2024 Do you have a device (e.g., phone, tablet, computer) with a working camera? Yes 11/09/2024 Intimate Partner Violence Answer Date R ecorded Denied Basic Needs Not on file 11/09/2024 In the past 12 months have y ou been in a relationship with a person who hurts, threatens, or tries to control you? No 11/09/2024 Worried food would run out Not on file 11/09 In the past 12 months have y ou been in a relationship with a person who hurts, threatens, or tries to control you? No 11/09/2024 Sex and Gender Information Value Date Recorded Sex Assigned at Male 10/12/2024 12:20 PM EDT Legal Sex Male 9:41 AM EDT Gender Identity Non-binary 10/12/2024 12:20 PM EDT Sexual Orientation Straight 10/12/2024 12 :20 PM EDT Plan of Treatment Upcoming Encounters Date Type Department Care Team (Late st Contact Info) Description 12/01/2024 11:00 AM EDT [facility] [address] [place] [address] Kaia Kent PA [address] [address] [email or web address] Health Maintenance Due Date Last Done Comments DEPRESSION SCREENING 2003 HEPATITIS C SCREENING 2009 HIV ONE-TIME SCREENING (18-6 5 YEARS) 2009 COVID-19 VACCINE (2023-2 5 season) 2023 04/23/2021, 09/14/2020, 08/19/2020 Adult Td,Tdap Booster 06/25/2034 06/25/2024 SMOKING STATUS SCREENING (On ce After 26 Yrs) Completed 11/16/2024 HEPATITIS A VACCINES Aged Out No long er eligible based on patient's age to complete this topic HIB VACCINES Aged Out No longer eligi ble based on patient's age to complete this topic MENINGOCOCCAL VACCINES (ACWY) Aged Out No longer eligible based on patient's age to complete this topic MENINGOCOCCAL VACCINES (B) Aged Out N o longer eligible based on patient's age to complete this topic PNEUMOCOCCAL VACCINES (0-49 years) Aged Out No longer eligible b ased on patient's age to complete this topic Medical Devices Not on file Insurance CIGNA PPO CIGNA PPO CIGNA PPO CIGNA PPO CIGNA PPO CIGNA PPO CIGNA PPO Care Teams Valet Parking Attendant Relationship Specialty Start Date End Date Enrico Miller MD [address] [place] [phone] PCP - General Family Medicine 09/10/22 Kaia Kent PA [address] [place] [phone] [email or web address] Consulting Provider Physician Mini Shifter 10/12/24 Carmen Nielsen Psychotherapist 04/14/24 Additional Source Comments The information contained in this document represents components of the legal health record. It is not the complete legal health record.[facility]
[2024-11-16 14:44] VITALS: BP 100/60; PULSE 52; RESP 12; TEMP 36.7; O2SAT 97; BMI 25.2
== END 2024-11-16 15:30 | disposition home or self-care (01) ==
LOC: HO.HMCFM 14:01
PROVIDERS: PCP Family Medicine; Visit Provider Family Medicine
DX: F64.0 Transsexualism (principal); Z11.3 Encounter for screening for infections with a predominantly sexual mode of transmission

== ENCOUNTER 2024-11-16 15:20 | Outpatient (REF) | payer OTHER, SELFPAY ==
[2024-11-16 18:19] LABS: MANUAL DIFF FLAG NO
[2024-11-16 18:27] LABS: Hematocrit 50.2 % (42.0-52.0); Hemoglobin 17.4 g/dl (14.0-18.0); Imm Gran Abs Auto 0.01 X10*3/uL (0.00-0.03); Imm Gran Pct Auto 0.2 % (0.0-0.4); Lymphocytes Absolute Auto 2.4 X10*3/uL (1.2-4.9); Mean Corpuscular HGB Conc 34.7 g/dl (31.0-36.0); Mean Corpuscular Hemoglobin 30.5 pg (27.0-33.0); Mean Corpuscular Volume 87.9 fL (80.0-98.0); NRBC Abs Auto 0.000 X10*3/uL (0.0-0.012); NRBC Pct Auto 0.0 /100WBC (0.0-0.2); Platelet Count 214 X10*3/uL (160-400); Red Blood Count 5.71 X10*6/uL (4.60-5.80); White Blood Count 5.1 X10*3/uL (4.8-10.8)
[2024-11-16 18:39] LABS: INTERNATIONAL NORM RATIO 1.0 (0.9-1.1); Prothrombin Time 11.4 SEC (10.9-12.4)
[2024-11-16 18:53] LABS: Alanine Aminotransferase 36 U/L (0-40); Albumin Level 5.1 g/dL (3.5-5.0); Alkaline Phosphatase 86 U/L (39-117); Anion Gap 13 (12-20); Aspartate Amino Transferase 32 U/L (5-37); Blood Urea Nitrogen 24 mg/dL (9-16); Calcium 9.6 mg/dL (8.4-10.2); Carbon Dioxide 27 mmol/L (22-29); Chloride 107 mmol/L (96-108); Cholesterol 203 mg/dL (<200); Estimated Glomerular Filt Rate > 60; HDL Cholesterol 43 mg/dL (>40); Potassium 4.1 mmol/L (3.3-5.1); Sodium 143 mmol/L (135-145); Total Protein 7.8 g/dL (6.5-8.0); Triglycerides 134 mg/dL (<150)
[2024-11-17 06:13] LABS: Follicle Stimulating Hormone 3.1 mIU/mL (1.4-12.8)
[2024-11-17 07:44] LABS: Syphilis Screen Nonreactive (Nonreactive)
[2024-11-17 08:06] LABS: HBS Num1 121.84 mIU/mL (0-7.99); HBc Num1 0.06 S/CO (0.00-0.79); HBsAGNum1 0.48 S/CO (0.00-0.99); HIV Num 1 0.06 S/CO (0.00-0.99); Hepatitis B Surface Antigen Negative (Negative); ~HepC Num1 0.09 S/CO (0.00-0.79); ~Hepatitis B Surface Antibody REACTIVE (Nonreactive); ~Hepatitis C Antibody Nonreactive (Nonreactive)
[2024-11-21 09:08] LABS: Testosterone, Free 60.4 pg/mL (35.0-155.0)
[2024-11-29 00:39] LABS: Estradiol Ultra Sensitive 26 pg/mL (< OR = 29)
== END 2024-11-16 15:21 | disposition home or self-care (01) ==
LOC: HO.WFDLDS 15:20
PROVIDERS: Visit Provider Family Medicine
DX: Z11.4 Encounter for screening for human immunodeficiency virus [HIV] (principal); Z11.3 Encounter for screening for infections with a predominantly sexual mode of transmission; Z13.6 Encounter for screening for cardiovascular disorders; F64.0 Transsexualism; Z00.00 Encounter for general adult medical examination without abnormal findings
CPT/HCPCS: 36415; 80053; 80061; 82670; 83001; 83002; 84146; 84402; 84403; 84443; 85025; 85610; 86704; 86706; 86780; 86803; 87340; 87389